=== PATIENT | female | born 1935 | race Caucasian/White ===

== ENCOUNTER → 2017-11-11 | Outpatient (CLI) | payer MEDICARE, OTHER ==
[~2017-11-11] MED LIST: AMLO5 PO; CEPH500 PO; CIPR500 PO; ESTR2 PO; FURO20 PO; HYDR-86 PO; Klor-Con 1010 MEQ PO; LEVSOD75 PO; Lexapro 2020 MG PO; MULTIVITAMIN MINERAL; Metoprolol Tar100 MG PO; PRIMIDONE 250 MG; ROPI.25 PO; Seroquel25 MG PO; Seroquel50 MG PO; TOLT2 PO; Travatan Z5 ML BOTHEYES; Zoloft50 MG PO
[2017-11-11 15:25] LABS: Source, Urine Clean Catch
[2017-11-11 15:43] LABS: Appearance, Urine Hazy (Clear); Bilirubin, Urine Neg (Neg); Blood, Urine 1+ (Neg); Color, Urine Yellow (P-Yellow); Glucose Qualitative, Urine Neg (Neg); Ketones, Urine Neg (Neg); Leukocyte Esterase, Urine 3+ (Neg); Nitrite, Urine Pos (Neg); Protein, Urine Neg (Neg); Urobilinogen, Urine NORM (Normal); pH, Urine 6.5 (5.0-8.0)
[2017-11-11 15:58] LABS: Bacteria Many /hpf; Squamous Epithelial Cells Few /hpf (Few)
== END ==
LOC: LAB 15:23
PROVIDERS: Nurse Practitioner Primary Care
DX: N39.0 Urinary tract infection, site not specified (principal)
CPT/HCPCS: 81001

== ENCOUNTER → 2017-11-20 | Outpatient (CLI) | payer MEDICARE, OTHER ==
[2017-11-20 14:44] LABS: Source, Urine Clean Catch
[2017-11-20 14:53] LABS: Bilirubin, Urine Neg (Neg); Blood, Urine Neg (Neg); Color, Urine Yellow (P-Yellow); Glucose Qualitative, Urine Neg (Neg); Ketones, Urine Neg (Neg); Leukocyte Esterase, Urine Neg (Neg); Nitrite, Urine Neg (Neg); Protein, Urine Neg (Neg); Specific Gravity, Urine 1.015 (1.003-1.022); Urobilinogen, Urine NORM (Normal)
[2017-11-20 15:03] LABS: Appearance, Urine Clear (Clear)
== END | disposition home or self-care (01) ==
LOC: LAB 11:40
PROVIDERS: Nurse Practitioner Primary Care
DX: N39.0 Urinary tract infection, site not specified (principal)
CPT/HCPCS: 81003

== ENCOUNTER → 2018-01-07 | Outpatient (CLI) | payer MEDICARE, OTHER ==
[2018-01-07 19:13] LABS: Source, Urine Clean Catch
[2018-01-07 19:22] LABS: Bilirubin, Urine Neg (Neg); Blood, Urine 1+ (Neg); Glucose Qualitative, Urine Neg (Neg); Ketones, Urine Neg (Neg); Leukocyte Esterase, Urine 2+ (Neg); Nitrite, Urine Pos (Neg); Protein, Urine Neg (Neg); Specific Gravity, Urine 1.015 (1.003-1.022); Urobilinogen, Urine NORM (Normal)
[2018-01-07 19:28] LABS: Appearance, Urine Clear (Clear); Color, Urine Pale Yellow (P-Yellow)
[2018-01-07 19:29] LABS: Bacteria Not Seen /hpf; Red Blood Cells, Urine Not Seen /hpf (0-2); Squamous Epithelial Cells Not Seen /hpf (Few); White Blood Cells, Urine Not Seen /hpf (0-5)
== END | disposition home or self-care (01) ==
LOC: LAB SHORT 15:03 → LAB 15:03
PROVIDERS: Nurse Practitioner Primary Care
DX: N39.0 Urinary tract infection, site not specified (principal)
CPT/HCPCS: 81001; 87077; 87086; 87186

== ENCOUNTER → 2018-02-20 | Outpatient (CLI) | payer MEDICARE, OTHER ==
[2018-02-20 14:01] LABS: Source, Urine Clean Catch
[2018-02-20 14:36] LABS: Bilirubin, Urine Neg (Neg); Blood, Urine 2+ (Neg); Glucose Qualitative, Urine Neg (Neg); Ketones, Urine Neg (Neg); Leukocyte Esterase, Urine 3+ (Neg); Nitrite, Urine Neg (Neg); Protein, Urine 1+ (Neg); Specific Gravity, Urine 1.015 (1.003-1.022); Urobilinogen, Urine NORM (Normal)
[2018-02-20 15:47] LABS: Appearance, Urine Hazy (Clear); Color, Urine Yellow (P-Yellow)
[2018-02-20 15:48] LABS: Bacteria Few /hpf; Squamous Epithelial Cells Few /hpf (Few); White Blood Cells, Urine TNTC /hpf (0-5)
== END ==
LOC: LAB SHORT 03:30 → LAB 03:30
PROVIDERS: Nurse Practitioner Primary Care
DX: N39.0 Urinary tract infection, site not specified (principal)
CPT/HCPCS: 81001; 87077; 87086; 87186

== ENCOUNTER → 2018-03-24 | Outpatient (CLI) | payer MEDICARE, OTHER ==
[2018-03-24 11:30] LABS: Source, Urine Clean Catch
[2018-03-24 11:42] LABS: Bilirubin, Urine Neg (Neg); Blood, Urine 2+ (Neg); Glucose Qualitative, Urine Neg (Neg); Ketones, Urine Neg (Neg); Leukocyte Esterase, Urine 3+ (Neg); Nitrite, Urine Pos (Neg); Protein, Urine Neg (Neg); Urobilinogen, Urine NORM (Normal)
[2018-03-24 12:03] LABS: Appearance, Urine Cloudy (Clear); Color, Urine Pale Yellow (P-Yellow); White Blood Cells, Urine TNTC /hpf (0-5)
[2018-03-24 12:04] LABS: Bacteria Many /hpf; Squamous Epithelial Cells Few /hpf (Few)
== END | disposition home or self-care (01) ==
LOC: LAB 05:45 → LAB SHORT 05:45
PROVIDERS: Nurse Practitioner Primary Care
DX: N39.0 Urinary tract infection, site not specified (principal)
CPT/HCPCS: 81001; 87077; 87086; 87186

== ENCOUNTER → 2018-04-16 | Outpatient (CLI) | payer MEDICARE, OTHER ==
[2018-04-16 19:23] LABS: Source, Urine Clean Catch
[2018-04-16 19:30] LABS: Bilirubin, Urine Neg (Neg); Blood, Urine 2+ (Neg); Glucose Qualitative, Urine Neg (Neg); Ketones, Urine Neg (Neg); Leukocyte Esterase, Urine Neg (Neg); Nitrite, Urine Neg (Neg); Protein, Urine 1+ (Neg); Urobilinogen, Urine NORM (Normal)
[2018-04-16 19:50] LABS: Color, Urine Yellow (P-Yellow)
[2018-04-16 19:51] LABS: Appearance, Urine Clear (Clear)
[2018-04-16 19:53] LABS: Bacteria Few /hpf; Red Blood Cells, Urine Not Seen /hpf (0-2); Squamous Epithelial Cells Few /hpf (Few); White Blood Cells, Urine 0-2 /hpf (0-5)
== END | disposition home or self-care (01) ==
LOC: LAB SHORT 17:00 → LAB 17:00
PROVIDERS: Nurse Practitioner Primary Care
DX: N39.0 Urinary tract infection, site not specified (principal)
CPT/HCPCS: 81001

== ENCOUNTER → 2018-10-15 | Outpatient (CLI) | payer MEDICARE, OTHER ==
[~2018-10-15] MED LIST changes: +Detrol1 MG; +Ranitidine15 MG/1 ML
[2018-10-15 20:07] LABS: Appearance, Urine Clear (Clear); Bilirubin, Urine Neg (Neg); Blood, Urine 2+ (Neg); Color, Urine Yellow (P-Yellow); Glucose Qualitative, Urine Neg (Neg); Ketones, Urine Neg (Neg); Leukocyte Esterase, Urine Neg (Neg); Nitrite, Urine Pos (Neg); Protein, Urine Neg (Neg); Specific Gravity, Urine 1.015 (1.003-1.022); Urobilinogen, Urine NORM (Normal); pH, Urine 6.5 (5.0-8.0)
[2018-10-15 20:26] LABS: Bacteria Mod /hpf; Red Blood Cells, Urine 0-2 /hpf (0-2); Squamous Epithelial Cells Rare /hpf (Few); White Blood Cells, Urine 0-2 /hpf (0-5)
== END ==
LOC: LAB SHORT 19:37 → LAB 19:37
PROVIDERS: Nurse Practitioner Primary Care
DX: Z51.81 Encounter for therapeutic drug level monitoring (principal); Z79.899 Other long term (current) drug therapy
CPT/HCPCS: 81001; 87077; 87086; 87186

== ENCOUNTER 2018-10-29 03:36 | Emergency (ER) | payer MEDICARE, OTHER ==
[~2018-10-29] VITALS: Ht 167.6 cm; Wt 81.7 kg
[~2018-10-29 03:36] MED LIST changes: -Detrol1 MG; -Ranitidine15 MG/1 ML
== END 2018-10-29 06:00 | disposition home or self-care (01) ==
LOC: ER 03:36
DX: M25.551 Pain in right hip (principal); F32.9 Major depressive disorder, single episode, unspecified; I10 Essential (primary) hypertension; M19.90 Unspecified osteoarthritis, unspecified site; G30.9 Alzheimer's disease, unspecified; F02.80 Dementia in other diseases classified elsewhere, unspecified severity, without behavioral disturbance, psychotic disturbance, mood disturbance, and anxiety; Z88.0 Allergy status to penicillin; Z88.8 Allergy status to other drugs, medicaments and biological substances; Z79.899 Other long term (current) drug therapy; W19.XXXA Unspecified fall, initial encounter; Y92.129 Unspecified place in nursing home as the place of occurrence of the external cause
CPT/HCPCS: 73502; 99283-25

== ENCOUNTER 2018-11-01 09:37 | Emergency (ER) | payer MEDICARE, OTHER ==
[~2018-11-01] VITALS: Ht 165.1 cm; Wt 95.2 kg
[2018-11-01] MEDS ORDERED: Ranitidine15 MG/1 ML (10:26)
[2018-11-01] MEDS ORDERED: Detrol1 MG (10:27)
== END 2018-11-01 13:00 | disposition home or self-care (01) ==
LOC: ER 09:37
DX: M25.561 Pain in right knee (principal); F03.90 Unspecified dementia, unspecified severity, without behavioral disturbance, psychotic disturbance, mood disturbance, and anxiety; W18.30XA Fall on same level, unspecified, initial encounter; Z88.0 Allergy status to penicillin; Z88.8 Allergy status to other drugs, medicaments and biological substances; Z79.899 Other long term (current) drug therapy; I10 Essential (primary) hypertension
CPT/HCPCS: 72170; 73562-LT; 73562-RT; 99283-25

== ENCOUNTER → 2018-11-11 | Outpatient (CLI) | payer MEDICARE, OTHER ==
[~2018-11-11] MED LIST changes: +Detrol1 MG; +Ranitidine15 MG/1 ML
[2018-11-17 09:21] LABS: Source, Urine Clean Catch
[2018-11-17 09:27] LABS: Appearance, Urine Clear (Clear); Bilirubin, Urine Neg (Neg); Blood, Urine Neg (Neg); Color, Urine Yellow (P-Yellow); Glucose Qualitative, Urine Neg (Neg); Ketones, Urine Neg (Neg); Leukocyte Esterase, Urine Neg (Neg); Nitrite, Urine Neg (Neg); Protein, Urine Neg (Neg); Specific Gravity, Urine 1.005 (1.003-1.022); Urobilinogen, Urine NORM (Normal)
== END | disposition home or self-care (01) ==
LOC: LAB SHORT 09:19 → LAB 09:19
PROVIDERS: Nurse Practitioner Family
DX: N39.0 Urinary tract infection, site not specified (principal)
CPT/HCPCS: 81003

== ENCOUNTER 2019-03-05 17:01 | Inpatient (IN) | payer MEDICARE, OTHER ==
[~2019-03-05] VITALS: Ht 167.6 cm; Wt 81.7 kg
[~2019-03-05 17:01] MED LIST changes: -Detrol1 MG; -HYDR-86 PO; -LEVSOD75 PO; -Lexapro 2020 MG PO; -Metoprolol Tar100 MG PO; -Ranitidine15 MG/1 ML; -Seroquel50 MG PO; -TOLT2 PO
[2019-03-05] MEDS ORDERED: DIVA125 PO (21:39)
[2019-03-05] MEDS ORDERED: ACET325 PO ×2 (21:39→21:47)
[2019-03-05] MEDS ORDERED: ESCI10 PO (21:40)
[2019-03-05] MEDS ORDERED: LEVSOD75 PO (21:40)
[2019-03-05] MEDS ORDERED: Metoprolol Tar100 MG PO (21:41)
[2019-03-05] MEDS ORDERED: PRESERVISION A1 EACH PO (21:42)
[2019-03-05] MEDS ORDERED: Seroquel50 MG PO (21:42)
[2019-03-05] MEDS ORDERED: Zantac150 MG PO (21:43)
[2019-03-05] MEDS ORDERED: Detrol1 MG PO (21:43)
[2019-03-05] MEDS ORDERED: THERA1 EACH PO (21:44)
[2019-03-05] MEDS ORDERED: Hydrocodone-Ap1 EA23 PO (21:45)
[2019-03-05] MEDS ORDERED: QUET25 PO (21:46)
[2019-03-05] MEDS ORDERED: PROC25S PR (21:48)
[2019-03-05] MEDS ORDERED: NYSTRITC TOP (21:48)
[2019-03-05 22:47] LABS: BASOPHILS ABSOLUTE AUTO 0.04 K/mm3 (0.00-0.23); BASOPHILS PERCENT AUTO 1 % (0-2); EOSINOPHILS ABSOLUTE AUTO 0.13 K/mm3 (0.00-0.68); EOSINOPHILS PERCENT AUTO 2 % (0-6); Hematocrit 33.9 % (33.0-51.0); Hemoglobin 11.1 g/dL (11.5-16.0); IMMATURE GRAN ABSOLUTE AUTO 0.03 K/mm3 (0.00-0.10); IMMATURE GRAN PERCENT AUTO 0 % (0-1); LYMPHOCYTES ABSOLUTE AUTO 1.31 K/mm3 (0.84-5.20); LYMPHOCYTES PERCENT AUTO 15 % (21-46); MONOCYTES ABSOLUTE AUTO 1.16 K/mm3 (0.16-1.47); MONOCYTES PERCENT AUTO 13 % (4-13); Mean Corpuscular HGB 31.4 pg (26.0-34.0); Mean Corpuscular HGB Conc 32.7 g/dL (31.5-36.5); Mean Corpuscular Volume 96 fL (80-100); NEUTROPHILS ABSOLUTE AUTO 6.15 K/mm3 (1.96-9.15); NEUTROPHILS PERCENT AUTO 70 % (41-73); Platelet Count 143 K/mm3 (150-400); RDW Coefficient Variation 13.3 % (11.7-14.2); RDW Standard Deviation 47.2 fL (35.1-46.3); Red Blood Cell Count 3.53 M/mm3 (3.80-5.20); White Blood Cell Count 8.82 K/mm3 (4.00-11.30)
[2019-03-05 23:06] LABS: International Normalized Ratio 1.04
[2019-03-05 23:09] LABS: Anion Gap 6 mmol/L (6-16); Blood Urea Nitrogen 21 mg/dL (8-24); Bun/Creatinine Ratio 24.7 (12.0-20.0); CO2, Blood 29 mmol/L (21-32); Calcium, Blood 8.4 mg/dL (8.5-10.1); Chloride, Blood 107 mmol/L (98-108); Creatinine, Blood 0.85 mg/dL (0.40-1.00); Glomerular Filtration Rate >60 (60-); Glucose, Blood 111 mg/dL (70-99); Potassium, Blood 4.2 mmol/L (3.5-5.5); Sodium, Blood 142 mmol/L (136-145)
--- NOTE | 2019-03-06 06:00 | NUR ---
SHIFT SUMMARY LYING IN SEMI FOWLERFS WITH EYES CLOSED. RESTED WELL, PAIN MANAGED. CONFUSED AT BASELINE. DENIES FURTHER NEEDS OR WANTS AT THIS TIME. SAFETY MEASURES IN PLACE. WILL GIVE HAND OFF TO ONCOMING SHIFT USING SBAR.
--- NOTE | 2019-03-06 12:48 | NUR ---
PT TO DAY SURGERY AT THIS TIME.
--- NOTE | 2019-03-06 13:50 | NUR ---
PER DR ZAIDI, PAUL FOR L FOOT IV SITE.
--- NOTE | 2019-03-06 18:28 | NUR ---
PT ARRIVED BACK TO HER ROOM AT APPROXIMATELY 1814. SHE IS ALERT BUT IN HER USUAL STATE OF CONFUSION. VSS. PT DOES NOT APPEAR TO BE IN PAIN. WILL CONTINUE TO MONITOR.
--- NOTE | 2019-03-06 19:32 | NUR ---
SHIFT SUMMARY PT WAS TAKEN TO SURGERY TODAY BY DR. PATIÑO. SHE RETURNED TO THE ROOM AT 181. POST OP PT IS ALERT AND IN HER USUAL STATE OF CONFUSION. PT'S WAS AT THE BEDSIDE FOR MUCH OF THE DAY. VSS. REPORT GIVEN TO BONI GOMES.
[2019-03-07 04:28] LABS: BASOPHILS ABSOLUTE AUTO 0.01 K/mm3 (0.00-0.23); BASOPHILS PERCENT AUTO 0 % (0-2); EOSINOPHILS PERCENT AUTO 0 % (0-6); Hematocrit 30.3 % (33.0-51.0); Hemoglobin 9.8 g/dL (11.5-16.0); IMMATURE GRAN ABSOLUTE AUTO 0.06 K/mm3 (0.00-0.10); IMMATURE GRAN PERCENT AUTO 0 % (0-1); LYMPHOCYTES ABSOLUTE AUTO 0.93 K/mm3 (0.84-5.20); LYMPHOCYTES PERCENT AUTO 7 % (21-46); MONOCYTES ABSOLUTE AUTO 1.54 K/mm3 (0.16-1.47); MONOCYTES PERCENT AUTO 11 % (4-13); Mean Corpuscular HGB 30.9 pg (26.0-34.0); Mean Corpuscular HGB Conc 32.3 g/dL (31.5-36.5); Mean Corpuscular Volume 96 fL (80-100); Mean Platelet Volume 10.9 fL (9.1-12.4); NEUTROPHILS ABSOLUTE AUTO 11.07 K/mm3 (1.96-9.15); NEUTROPHILS PERCENT AUTO 81 % (41-73); Platelet Count 174 K/mm3 (150-400); RDW Coefficient Variation 13.3 % (11.7-14.2); RDW Standard Deviation 47.3 fL (35.1-46.3); Red Blood Cell Count 3.17 M/mm3 (3.80-5.20); White Blood Cell Count 13.61 K/mm3 (4.00-11.30)
--- NOTE | 2019-03-07 05:55 | NUR ---
SHIFT SUMMARY: PT POD #1 FOR RIGHT MARKELL HIP. PT ORIENTED TO SELF. PLEASANT AND COOPERATIVE WITH CARE. MUMBLING TO SELF. OCC PICKING AT BLANKETS. AQUACEL DRESSING INTACT W/O DRAINAGE. FLUIDS INFUSING. PT INCONTINENT T/O SHIFT. ABDUCTOR IN PLACE. SCDS ON BILATERAL CALFS. ISABELA HOSE PLACED TO RIGHT LEG ONLY D/T THE IV IN THE LEFT FOOT. PT APPEARS TO BE COMFORTABLE THROUGHOUT SHIFT; DENYING PAIN. NO GRIMACE NOTED. PT NON AMBULATORY AT BASELINE. WILL WORK WITH PT.
--- NOTE | 2019-03-07 11:39 | NUR ---
DR LINN RECENTLY HERE TO SEE PT.
--- NOTE | 2019-03-07 12:42 | NUR ---
DR PATIÑO HERE RECENTLY TO SEE PT.
--- NOTE | 2019-03-07 16:51 | NUR ---
SHIFT SUMMARY PT EATING AND DRINKING WITH ASSIST AND ENCOURAGEMENT. PT BEEN ASSISTED WITH ADL'S PRN. PT BEEN REPOSITIONED MULT TIMES TODAY. PT ADBUCTOR PILLOW IN PLACE. FAMILY IN/OUT OF ROOM. ALARM IN PLACE. PT MED ORDERED AND FOR PAIN WITHOUT DIFFICULTY WITH ASPIRATION PRECAUTIONS IN PLACE. HELDER RIDER BEEN TO SEE PT TODAY.
[2019-03-08 04:34] LABS: BASOPHILS ABSOLUTE AUTO 0.04 K/mm3 (0.00-0.23); BASOPHILS PERCENT AUTO 0 % (0-2); EOSINOPHILS ABSOLUTE AUTO 0.35 K/mm3 (0.00-0.68); EOSINOPHILS PERCENT AUTO 3 % (0-6); Hematocrit 27.5 % (33.0-51.0); Hemoglobin 8.8 g/dL (11.5-16.0); IMMATURE GRAN ABSOLUTE AUTO 0.12 K/mm3 (0.00-0.10); IMMATURE GRAN PERCENT AUTO 1 % (0-1); LYMPHOCYTES ABSOLUTE AUTO 2.17 K/mm3 (0.84-5.20); LYMPHOCYTES PERCENT AUTO 15 % (21-46); MONOCYTES ABSOLUTE AUTO 1.82 K/mm3 (0.16-1.47); MONOCYTES PERCENT AUTO 13 % (4-13); Mean Corpuscular HGB 31.4 pg (26.0-34.0); Mean Corpuscular Volume 98 fL (80-100); Mean Platelet Volume 11.1 fL (9.1-12.4); NEUTROPHILS ABSOLUTE AUTO 9.58 K/mm3 (1.96-9.15); NEUTROPHILS PERCENT AUTO 68 % (41-73); Platelet Count 162 K/mm3 (150-400); RDW Coefficient Variation 13.9 % (11.7-14.2); RDW Standard Deviation 50.4 fL (35.1-46.3); White Blood Cell Count 14.08 K/mm3 (4.00-11.30)
[2019-03-08 04:53] LABS: Albumin, Blood 2.2 g/dL (3.4-5.0); Anion Gap 3 mmol/L (6-16); Blood Urea Nitrogen 36 mg/dL (8-24); Bun/Creatinine Ratio 31.3 (12.0-20.0); CO2, Blood 27 mmol/L (21-32); Calcium, Blood 7.8 mg/dL (8.5-10.1); Chloride, Blood 109 mmol/L (98-108); Creatinine, Blood 1.15 mg/dL (0.40-1.00); Glomerular Filtration Rate 48 (60-); Glucose, Blood 115 mg/dL (70-99); Phosphorus, Blood 3.5 mg/dL (2.5-4.9); Potassium, Blood 4.4 mmol/L (3.5-5.5); Sodium, Blood 139 mmol/L (136-145)
--- NOTE | 2019-03-08 04:56 | NUR ---
SHIFT SUMMARY: NO ACUTE CHANGES OVER NIGHT. ORIENTED TO SELF. RESPONDING WITH MINIMAL WORDS. VOIDING IN ATTENDS. CRYSTAL MEDS CRUSHED IN APPLESAUCE. GIVEN NORCO AND TYLENOL FOR PAIN. PT APPEARS TO BE IN PAIN DURING REPOSITIONING, OTHERWISE APPEARS TO BE COMFORTABLE. SLEEPING MOST OF SHIFT. SALINE LOCKED. AQUACEL DRESSING CDI.
--- NOTE | 2019-03-08 16:33 | NUR ---
SHIFT SUMMARY PT BEEN ENC TO INCREASE PO INTAKE. PT BEEN ASSISTED WITH ADL'S PRN AND REPOSITIONED MULT TIMES. PT FAMILY IN/OUT OF ROOM. BED ALARM IN PLACE. PT BEEN PLEASANT AND COOPERATIVE WITH CARE.
[2019-03-09 04:18] LABS: BASOPHILS ABSOLUTE AUTO 0.03 K/mm3 (0.00-0.23); BASOPHILS PERCENT AUTO 0 % (0-2); EOSINOPHILS ABSOLUTE AUTO 0.48 K/mm3 (0.00-0.68); EOSINOPHILS PERCENT AUTO 4 % (0-6); Hematocrit 27.5 % (33.0-51.0); Hemoglobin 8.7 g/dL (11.5-16.0); IMMATURE GRAN PERCENT AUTO 1 % (0-1); LYMPHOCYTES ABSOLUTE AUTO 1.67 K/mm3 (0.84-5.20); LYMPHOCYTES PERCENT AUTO 15 % (21-46); MONOCYTES ABSOLUTE AUTO 1.32 K/mm3 (0.16-1.47); MONOCYTES PERCENT AUTO 12 % (4-13); Mean Corpuscular HGB 31.4 pg (26.0-34.0); Mean Corpuscular HGB Conc 31.6 g/dL (31.5-36.5); Mean Corpuscular Volume 99 fL (80-100); Mean Platelet Volume 11.4 fL (9.1-12.4); NEUTROPHILS ABSOLUTE AUTO 7.85 K/mm3 (1.96-9.15); NEUTROPHILS PERCENT AUTO 69 % (41-73); Platelet Count 178 K/mm3 (150-400); RDW Coefficient Variation 13.8 % (11.7-14.2); RDW Standard Deviation 50.9 fL (35.1-46.3); Red Blood Cell Count 2.77 M/mm3 (3.80-5.20); White Blood Cell Count 11.45 K/mm3 (4.00-11.30)
[2019-03-09 04:33] LABS: Anion Gap 5 mmol/L (6-16); Blood Urea Nitrogen 26 mg/dL (8-24); Bun/Creatinine Ratio 29.6 (12.0-20.0); CO2, Blood 26 mmol/L (21-32); Calcium, Blood 8.1 mg/dL (8.5-10.1); Chloride, Blood 110 mmol/L (98-108); Creatinine, Blood 0.88 mg/dL (0.40-1.00); Glomerular Filtration Rate >60 (60-); Glucose, Blood 103 mg/dL (70-99); Potassium, Blood 4.2 mmol/L (3.5-5.5); Sodium, Blood 141 mmol/L (136-145)
--- NOTE | 2019-03-09 04:57 | NUR ---
SUMMARY: PT IS POD 3 R FEMORAL NECK FX REPAIR. NO CHANGE TONIGHT. VSS. PT HAS BEEN NON VERBAL TONIGHT, ALERT, BUT NOT ANSWERING QUESTIONS. HX OF SEVERE DEMENTIA. PT TURNED Q2, ATTENDS CHANGED PRN, IS VOIDING. PT DOES NOT USE CALL LIGHT, FREQUENT ROUNDING COMPLETED. SURGICAL SITE WNL, ABDUCTOR PILLOW USED WHEN PT LYING FLAT. PT GIVEN TYLENOL X2, IS PAINFUL WITH REPOSITIONING. NO ACUTE CONCERNS AT THIS TIME.
--- NOTE | 2019-03-09 08:08 | NUR ---
03/09/19 0808 Daylin Bernal VERIFICATIONS: EDIT CHART.
[2019-03-09] MEDS ORDERED: XARELTO15 MG PO (11:45)
[2019-03-09] MEDS ORDERED: Senna Plus Tab1 EACH PO (11:45)
--- NOTE | 2019-03-09 18:15 | NUR ---
DISCHARGE REPORT CALLED TO BRUCE AT [facility] AT APPROXIMATELY 1630. PT LEFT AT APPROXIMATELY 1710 IN WHEELCHAIR WITH [employer]. VSS. DRESSINGS PROVIDED AND DISCHARGE INSTRUCTIONS SENT WITH PATIENT.
== END 2019-03-09 17:00 | DRG 470 ==
LOC: ER 17:01 → SURS 21:59
PROVIDERS: Internal Medicine; Nurse Practitioner Acute Care; Orthopaedic Surgery; ADMIT Internal Medicine
PROC: 0SR90J9 Replacement of Right Hip Joint with Synthetic Substitute, Cemented, Open Approach (ICD-10-PCS; principal; 2019-03-06 13:30)
DX: S72.001A Fracture of unspecified part of neck of right femur, initial encounter for closed fracture (principal); D62 Acute posthemorrhagic anemia; W19.XXXA Unspecified fall, initial encounter; G30.9 Alzheimer's disease, unspecified; F02.80 Dementia in other diseases classified elsewhere, unspecified severity, without behavioral disturbance, psychotic disturbance, mood disturbance, and anxiety; I10 Essential (primary) hypertension; E03.9 Hypothyroidism, unspecified; F41.8 Other specified anxiety disorders
CPT/HCPCS: 36415; 72100; 72170; 73502; 73562-RT; 73590; 80048; 80069; 84443; 85025; 85610; 88305; 88311; 93971; 97110; 97162; 97530; 99285-25; A9270; A9270-GY; C1713; C1776; J0171; J0735; J1100; J1650; J1885; J2370; J2405; J2704; J2710; J2795; J3010; J7030; J7120

== ENCOUNTER 2019-03-26 17:19 | Inpatient (IN) | payer MEDICARE, OTHER ==
[~2019-03-26] VITALS: Ht 157.5 cm; Wt 90.7 kg
[~2019-03-26 17:19] MED LIST changes: +ACET325 PO; +DIVA125 PO; +Detrol1 MG PO; +ESCI10 PO; +Hydrocodone-Ap1 EA23 PO; +LEVSOD75 PO; +Metoprolol Tar100 MG PO; +NYSTRITC TOP; +PRESERVISION A1 EACH PO; +PROC25S PR; +QUET25 PO; +Senna Plus Tab1 EACH PO; +Seroquel50 MG PO; +THERA1 EACH PO; +XARELTO15 MG PO; +Zantac150 MG PO
[2019-03-26 19:00] LABS: BASOPHILS ABSOLUTE AUTO 0.04 K/mm3 (0.00-0.23); BASOPHILS PERCENT AUTO 0 % (0-2); EOSINOPHILS ABSOLUTE AUTO 0.09 K/mm3 (0.00-0.68); EOSINOPHILS PERCENT AUTO 1 % (0-6); Hematocrit 34.6 % (33.0-51.0); IMMATURE GRAN ABSOLUTE AUTO 0.05 K/mm3 (0.00-0.10); IMMATURE GRAN PERCENT AUTO 0 % (0-1); LYMPHOCYTES ABSOLUTE AUTO 1.77 K/mm3 (0.84-5.20); LYMPHOCYTES PERCENT AUTO 15 % (21-46); MONOCYTES ABSOLUTE AUTO 1.07 K/mm3 (0.16-1.47); MONOCYTES PERCENT AUTO 9 % (4-13); Mean Corpuscular HGB 31.1 pg (26.0-34.0); Mean Corpuscular HGB Conc 31.8 g/dL (31.5-36.5); Mean Corpuscular Volume 98 fL (80-100); Mean Platelet Volume 11.3 fL (9.1-12.4); NEUTROPHILS ABSOLUTE AUTO 8.91 K/mm3 (1.96-9.15); NEUTROPHILS PERCENT AUTO 75 % (41-73); Platelet Count 221 K/mm3 (150-400); RDW Coefficient Variation 14.6 % (11.7-14.2); Red Blood Cell Count 3.54 M/mm3 (3.80-5.20); White Blood Cell Count 11.93 K/mm3 (4.00-11.30)
[2019-03-26 19:22] LABS: Alanine Aminotransfer (ALT/SGP 13 U/L (12-78); Albumin, Blood 2.8 g/dL (3.4-5.0); Albumin/Globulin Ratio 0.8 (0.8-1.8); Alk Phos 59 U/L (50-136); Anion Gap 6 mmol/L (6-16); Aspartate Aminotrans (AST/SGOT 11 U/L (12-37); Bilirubin, Total 0.9 mg/dL (0.1-1.0); Blood Urea Nitrogen 15 mg/dL (8-24); Bun/Creatinine Ratio 18.3 (12.0-20.0); CO2, Blood 28 mmol/L (21-32); Calcium, Blood 8.4 mg/dL (8.5-10.1); Chloride, Blood 107 mmol/L (98-108); Creatinine, Blood 0.82 mg/dL (0.40-1.00); Globulin, Blood 3.6 g/dL (2.2-4.0); Glomerular Filtration Rate >60 (60-); Glucose, Blood 107 mg/dL (70-99); Magnesium, Blood 2.2 mg/dL (1.6-2.4); Potassium, Blood 3.6 mmol/L (3.5-5.5); Sodium, Blood 141 mmol/L (136-145); Total Protein, Blood 6.4 g/dL (6.4-8.2)
[2019-03-27] MEDS ORDERED: TRAM50 PO (02:16)
[2019-03-27 05:12] LABS: Hematocrit 34.5 % (33.0-51.0); Mean Corpuscular HGB 30.6 pg (26.0-34.0); Mean Corpuscular HGB Conc 31.9 g/dL (31.5-36.5); Mean Corpuscular Volume 96 fL (80-100); Mean Platelet Volume 11.3 fL (9.1-12.4); Platelet Count 211 K/mm3 (150-400); RDW Coefficient Variation 14.6 % (11.7-14.2); RDW Standard Deviation 50.6 fL (35.1-46.3); White Blood Cell Count 10.23 K/mm3 (4.00-11.30)
--- NOTE | 2019-03-27 05:20 | NUR ---
RESTRAINT APPLIED PT WITH MULTIPLE ATTEMPTS TO GET OOB. PT PULLED LATEST IV OUT. HOSPITALIST ON PHONE WITH NEW IV ABX ORDERS, INFORMED OF PT'S STATUS. ORDERS TO APPLY VEST OBTAINED. VEST APPLIED AT 0345 WITH NEW IV PLACED AT 0415. IV WRAPPED + COVERED, DISTRACTION VEST GIVEN TO PT WITH LITTLE EFFECT. PT CONTINUED TO PICK AND PULL AT IV DRESSING. HOSPITALIST INFORMED OF CONTINUED BEHAVIOR WITH NEW ORDERS TO APPLY SOFT WRIST RESTRAINTS BILATERALLY. BILATERAL SOFT WRIST RESTRAINTS APPLIED AT 0445. PT NOW QUIET IN BED, WATCHING TV WITH STAFF MEMBER AT BEDSIDE. WILL ADMINISTER MEDICATIONS ASSESSED. BED ALARM ON FOR SAFETY.
[2019-03-27 06:03] LABS: Alanine Aminotransfer (ALT/SGP 11 U/L (12-78); Albumin, Blood 2.9 g/dL (3.4-5.0); Albumin/Globulin Ratio 0.8 (0.8-1.8); Alk Phos 61 U/L (50-136); Anion Gap 7 mmol/L (6-16); Aspartate Aminotrans (AST/SGOT 12 U/L (12-37); Bilirubin, Total 1.2 mg/dL (0.1-1.0); Blood Urea Nitrogen 14 mg/dL (8-24); Bun/Creatinine Ratio 18.7 (12.0-20.0); CO2, Blood 25 mmol/L (21-32); Calcium, Blood 8.7 mg/dL (8.5-10.1); Chloride, Blood 108 mmol/L (98-108); Creatinine, Blood 0.75 mg/dL (0.40-1.00); Globulin, Blood 3.8 g/dL (2.2-4.0); Glomerular Filtration Rate >60 (60-); Glucose, Blood 98 mg/dL (70-99); Potassium, Blood 3.5 mmol/L (3.5-5.5); Sodium, Blood 140 mmol/L (136-145); Total Protein, Blood 6.7 g/dL (6.4-8.2)
--- NOTE | 2019-03-27 06:39 | NUR ---
SHIFT SUMMARY PT NEW ADMIT THIS AM. CONFUSED/PULLING AT LINES/FREQUENT ATTEMPTS TO GET OOB. DNR BAND APPLIED TO LLE. HIP WITH LARGE AMOUNT PURULENT DRAINAGE, DRESSING APPLIED. PT PULLED X3 IVs SINCE ED WITH NEW IV PLACED IN RIGHT AC. VEST PLACED AT 0345 WITH BILATERAL WRIST RESTRAINTS PLACED AT 0445. POST PLACEMENT OF RESTRAINTS, PT CONTINUE TO ATTEMPT TO GET OOB + YELLING OUT AT TIMES. MEDICATED FOR DISCOMFORT WHEN ASSESSED + PT VERBALLY REDIRECTED ONCE STAFF IS IN THE ROOM. THIS NURSE IS CURRENTLY AT BEDSIDE WITH PT RESTING COMFORTABLE. BED ALARM ON FOR SAFETY, BED IN LOW POSITION. WILL REPORT TO DAY SHIFT RN.
[2019-03-27 12:11] LABS: Source, Urine Catheter
[2019-03-27 12:14] LABS: Appearance, Urine Clear (Clear); Bilirubin, Urine Neg (Neg); Blood, Urine 4+ (Neg); Color, Urine Yellow (P-Yellow); Glucose Qualitative, Urine Neg (Neg); Ketones, Urine 2+ (Neg); Leukocyte Esterase, Urine 1+ (Neg); Nitrite, Urine Pos (Neg); Protein, Urine 1+ (Neg); Urobilinogen, Urine NORM (Normal)
[2019-03-27 12:42] LABS: Squamous Epithelial Cells Few /hpf (Few)
[2019-03-27 12:43] LABS: Bacteria Few /hpf
--- NOTE | 2019-03-27 12:56 | NUR ---
PT TO DAY SURGERY AT THIS TIME
--- NOTE | 2019-03-27 13:41 | NUR ---
PT TAKEN BACK TO OR FOR I&D
--- NOTE | 2019-03-27 13:52 | NUR ---
TO SDS VIA BED. PT CONFUSED. PULLING AT LINES. DIFFICULT TO RE-ORIENT. SPOKE WITH MYLA MICHAUD VIA PHONE. CONSENTED TO SURGERY.
--- NOTE | 2019-03-27 14:56 | NUR ---
03/27/19 1456 Keyonna Kong PT ENTERED OR WITH ELIZABETH CATHETER AND ON SCHEDULED ANTIBIOTICS
--- NOTE | 2019-03-27 18:31 | NUR ---
SHIFT SUMMARY PT SEVERE DEMENTIA, PLEASANT, CONSTANTLY SQUIRMING AND TRYING TO GET OUT OF BED, PULLING AT ELIZABETH, STAT LOCK, IV, ID BAND AND DNR BAND; EDY & WRIST RESTRAINTS IN PLACE, EXPIRES 03/28 1715. S/P I&D TO R HIP REPAIR OF 03/06/19, WOUND VAC IN PLACE. CRYSTAL PO, NO N&V. PAIN MANAGED WITH 50 MCG FENT. ELIZABETH PATENT & DRAINING YELLOW URINE, STAT LOCK ON, OFF FLOOR. DNR BAND AND ID BAND ON L ANKLE. SCDS ON. IVF & ABX INFUSING. WCTM & TX PER EMAR UNTIL REPORT GIVEN TO ONCOMING NOC RN.
--- NOTE | 2019-03-28 07:40 | NUR ---
SHIFT SUMMARY PT ALERT T/O SHIFT. ORIENTED TO SELF. RESTRAINTS PER ORDERS. POD#1 I&D R HIP; VAC DRESSING TO R HIP REINFORCED X2 D/T PT PULLING. PAIN IN R HIP MANAGED PER EMAR. NO ACUTE CHANGES. PT FREQUENTLY MOVED BLE'S. BM X1. ELIZABETH DRAINING WELL. CALL LIGHT IN REACH. REPORT GIVEN TO DAY SHIFT RN.
--- NOTE | 2019-03-28 19:51 | NUR ---
SUMMARY: NO ACUTE CHANGE TODAY. VSS, PT ORIENTED TO SELF ONLY AT BASELINE. CONFUSED, PULLS AT LINES, FREQUENT MONITORING. SURGICAL SITE REMAINED INTACT WITH WOUND VAC, NEEDED CHANGED AT SHIFT START DUE TO PT PULLING ON WOUND VAC CORD. RESTRAITS IN USE PER ORDER, ORDERS RENEWED WITH DR. LOMELI. PT DID NOT SEEM PAINFUL TODAY. CSM INTACT AND SMALL AMOUNT OF DRAINAGE FROM WOUND VAC. PREVENTATIVE MEPALIX PLACED TO COCCYX. PLAN IS FOR I&D TOMORROW, PT NPO AT 0000. REPORT GIVEN TO MIREYA GUIDRY
--- NOTE | 2019-03-29 08:43 | NUR ---
SUMMARY PENDING OR TODAY FOR R HIP I/D WASH OUT POTENTIAL TODAY.CONT CONFUSED,AND PULLING AT LINES TONIGHT ALTHOUGH IMPROVING .
--- NOTE | 2019-03-29 13:19 | NUR ---
03/29/19 Juan9 Marielos Mann ALL COUNTS CORRECT, RESTRAINTS REPLACED
--- NOTE | 2019-03-29 13:51 | NUR ---
REPORT RECIEVED FROM JANEY REEDU RN AT 5624
--- NOTE | 2019-03-29 14:59 | NUR ---
POST OP: PT TO UNIT AT ABOUT 1400. UPON ASSESSMENT PT IS ALERT, ORIENTED TO PERSON, OTHERWISE DOES NOT ANSWER QUESTIONS AND HAS CONFUSED LOOK. PT HAS DEMENTIA AT BASELINE. SURGICAL SITE/ WOUND VAC WNL. PT CONTINUES TO BE RESTRAINED, BILATERAL SOFT WRIST RESTRAINTS AND MONSERRAT TO R HAND, PT PULLING AT SURGICAL SITE/LINES/TUBES BEFORE TODAY'S I&D. PT DENIES PAIN AND NAUSEA. LUNG SOUNDS CLEAR. VSS. PT ABLE TO DRINK WATER AND EAT JELLO. WILL CTM.
--- NOTE | 2019-03-29 18:27 | NUR ---
SPOKE WITH PT DAUGHTER JASWANT TO UPDATE HER ON PT STATUS AT ABOUT 1845
--- NOTE | 2019-03-30 08:07 | NUR ---
SUMMARY GLENN ALAS PER MARY NETTLES. P T RESTING IN BED AT PRESENT
--- NOTE | 2019-03-30 08:28 | NUR ---
DR BERNARDO HERE TO SEE PT.
--- NOTE | 2019-03-30 17:35 | NUR ---
FAMILY CALLED FOR UPDATE, DISCUSSED PT'S STATUS AND PAIN MANAGEMENT. DISCUSSED PT'S STATUS INCLUDING PT NOT APPEARING TO BE IN PAIN WITH MILLINER HELPER AND NURSING LAGGING MACHINE OPERATOR.
--- NOTE | 2019-03-30 17:59 | NUR ---
Initial Visit: Palliative Care Consult for Medically Fragile and Readmission. Pt is A&Ox1 and denies pain at this time. Pt is pleasantly confused and appears comfortable at this time. PAINAD score is 0/10 with no non verbal indicators of pain or distress at this time. Spoke with Pt's bedside nurse Suman and he reports concerns regarding discharge plan. Infectious disease doctor is recommending IV antibiotics and is unsure how this will be accomodated with Pt's continued attempt to pull out IV. Suman suggested to speak with charge nurse regarding Pt's family concerns and frustrations. Spoke with charge nurse Laly and she reports family is frustrated that Pt has not had any pain medication today. Laly reports Pt has not showed furrowed brow, grimacing, increased respiratory rate or any other non verbal indicators of pain. Offered to contact family and Laly denies need at this time. Laly reports she will contact family and address concerns. Palliative Care will remain available
--- NOTE | 2019-03-30 21:45 | NUR ---
PT ASSISTED BACK TO BED FROM CHAIR.PT HAD REMOVED HER RRIGHT WEIST RESTRAINT AND WAS SITTING SIDEWAYS IN THE RECLYNER. PT'S 20 G IV WAS FOUND TO BE HANGING FROM HER LEFT WRIST, COBAN & PARTIAL DRSG INATCT AROUND HER WRIST. THE TIP WAS NOT INTACT. THE IV CATHETER WAS UNABLE TO BE FOUND, I COULD NOT PALPATE IT IN THE PT'S WRIST. PT IS C/O OF PAIN AT THE IV SITE. REDNESS, AND BRUISING IS PRESENT AT THE SITE. TOURNAQUET PLACED TO LEFT UPPER ARM, HOSPITALIST NOTIFIED, A 2 VIEW XRAY WAS OBTAINED OF THE LEFT FOREARM. HOSPITALIST NOTIFIED OF THE NEED TO CALL RADIOLOGY. CURRENTLY AWAITING FURTHER ORDERS. PT IS STABLE AT THIS TIME. WILL CONTINUE TO MONITOR.
--- NOTE | 2019-03-31 06:24 | NUR ---
SUMMARY NO ACUTE CHANGES THROUGH THE NIGHT, STILL WAITING FOR FUTURE ORDERS REGARDING POSSIBLE IV CATHETER MIGRARTION FROM HOSPITALIST. PT REMAINS CONFUSED AT BASELINE. CIRC WNL TO LEFT ARM, WRIST RESTRAINTS BILATERAL PER ORDERS. WOUND VAC IN PLACE TO RIGHT HIP, DRSG C/D/I, SUCTION INTACT. PT IS ON ROOM AIR. ATTENDS CHANGED PRN.
--- NOTE | 2019-03-31 07:35 | NUR ---
PT CONT TO BE CONFUSED (BASELINE). PT DENIES PAIN, CP, SHORTNESS OF BREATH. CIRC CHECK WNL. PT HAS PBC TO BLE. PT PLEASANT AND COOPERATIVE. PT DOES NOT APPEAR IN ANY PAIN OR DISTRESS. PT FOLLOWING COMMANDS AT THIS TIME. PT REPOSITIONED WITH MULT BLANKETS AND PILLOWS. HEEL PROTECTORS PLACED TO BILAT HEELS. PT OFF RESTRAINTS AT THIS TIME. PT WOUND VAC PROTECTED WITH BLANKET TUCKED AND PILLOWS FOR COMFORT. PT APPEARS TO BE RESTING QUIETLY. BED ALARM IN PLACE (MEDIUM SETTING). [address] CALL LIGHT IN REACH. DISCUSSED WITH QUALITY CONTROL CHECKER AND HOSPICE LIAISON.
--- NOTE | 2019-03-31 08:31 | NUR ---
floor thouroughly swept, IV catheter found under patients bed. Compared to catheter hub pieces appear to match up with no missing parts.
--- NOTE | 2019-03-31 08:38 | NUR ---
PT RESTING QUIETLY. RESP E/U. BED ALARM IN PLACE.
--- NOTE | 2019-03-31 10:27 | NUR ---
PT CONT TO BE PLEASANT AND COOP. DOES NOT APPEAR IN ANY PAIN AT THIS TIME. PT BEEN USING ACTIVITY VEST AND COLOR BOOK. BED ALARM IN PLACE. PT WATCHING TV.
--- NOTE | 2019-03-31 18:00 | NUR ---
SHIFT SUMMARY PT EATING AND DRINKING. PT VOIDING IN ATTENDS. PT BEEN PLEASANT AND COOPERATIVE TODAY. PT BEEN OUT OF RESTRAINTS SINCE THIS AM AT 07:35. PT BEEN ASSISTED WITH ADL'S PRN. PT BEEN REPOSITIONED MULT TIMES TODAY. PT WOUND VAC CHANGED TO HIP EARLIER TODAY WELL IV STARTED IN PT'S FOOT BY OTHER RN Rosey. PT BED ALARM IN PLACE. PT BEEN USING ACTIVITY SHIRT AND COLOR BOOKS AND CRAYON TODAY. PT ALSO RESTED QUIETLY AND NAPPED FOR SOME TIME TODAY.
--- NOTE | 2019-04-01 07:38 | NUR ---
SUMMARY NO ACUTE CHANGES THROUGH THE NIGHT. WOUND VAC REMAINS INTACT. PT REMAINS FREE FROM RESTRAINTS, CALM AND COOPERATIVE. ACTIVITY VEST, COLORING BOOKS AND BLOCKS PROVIDED FOR DISTRACTION, PT APPEARS TO BE HAPPY WITH THEM. BED ALARM FOR SAFETY. NO PAIN MEDS REQUIRED THROUGH THE NIGHT. PT APPEARS TO BE COMFORTABLE.
--- NOTE | 2019-04-02 14:49 | NUR ---
WOUND VAC DSG CHANGE R HIP WOUND VAC DRESSING CHANGED, WOUND BED APPEARED CLEAN AND RED, SCANT SEROUSANGUINOUS DRAINAGE NOTED, WOUND VAC W/ GOOD SEAL AFTER PLACEMENT, PT TOLERATED PROCEDURE WELL.
--- NOTE | 2019-04-02 18:16 | NUR ---
SUMMARY PT WAS FIDGETY THIS AM AND ATTEMPTING TO PULL ON DRESSING, WHEN ASKED IF IN PAIN, STATES "YES" OXYCODONE GIVEN FOR PAIN, PLEASANT AND COOPERATIVE WITH CARE, WOUND VAC DRESSING CHANGED AND BOWEL CARE STARTED TODAY, TURNS AND REPOSITIONS WELL IN BED W/ ASSIST, NO ACUTE CHANGES THIS SHIFT.
--- NOTE | 2019-04-03 07:15 | NUR ---
SUMMARY PT WITH PENDING TRANSFER TO CARE FACILITY TODAY. DRAIN INTACT AND SX.
--- NOTE | 2019-04-03 11:26 | NUR ---
DISCHARGE PLAN SPOKE WITH MIREYA BARRERA AT [facility]. PER BRUCE IF INSURANCE AAUTH WAS OBTAINED PRIOR TO DISCHARGE, [facility] STAFF HAS THE CAPABILITY TO DOSE IM ANTIBIOTICS AND WOULD MANAGE WOUND VAC IF HOME HEALTH WAS ORDERED. PATIENT WOULD NOT BE ABLE TO RETURN TO [facility] ON IV ANTIBIOTICS. DISCUSSED THIS INFORMATION WITH DENI OLIVARES RNPLASTIC SURGERY MANAGER. BRUCE GOMES AT [facility] PHONE [phone]
--- NOTE | 2019-04-03 16:23 | NUR ---
PAIN PATIENT RESTLESS, WHEN ASKED IF LEG HURTS PATIENT REPLIES YES, MEDICATED WITH OXYCODONE .
--- NOTE | 2019-04-03 17:30 | NUR ---
summary PATIENT CALM AND COOPERATIVE THROUGHOUT SHIFT. PATIENT HAS ACTIVITY APRON IN PLACE ON LAP AND KEEPING HANDS BUSY WITH THIS VEST. WOUND VAC IN PLACE TO RIGHT HIP. PATIENT HAS FED SELF MEALS THIS SHIFT. AWAITING POWERGLIDE PLACEMENT THIS SHIFT WHEN PROCEDURE NURSE AVAILABLE
--- NOTE | 2019-04-03 18:58 | NUR ---
POWERGLIDE TO RIGHT UPPER ARM
--- NOTE | 2019-04-04 06:41 | NUR ---
LYING IN LOW FOWLERS WITH EYES CLOSED. CLEANED OF ONCONTINENT EPISODE PRN THIS SHIFT. TEGADERM REINFORCED TO RIGHT HIP AFTER PT ATTEMPTED TO REMOVE IT. NO FURTHER CHANGES NOTED. DENIES PAIN, OR DISCOMFORT AT THIS TIME. SAFETY MEASURES IN PLACE. WILL GIVE HAND OFF TO ONCOMING SHIFT USING SBAR.
--- NOTE | 2019-04-04 17:31 | NUR ---
SHIFT SUMMARY PT HAS DONE WELL THIS SHIFT. UP TO CHAIR FOR 90% OF SHIFT. QUIET AND CALM, EASILY REDIRECTED FROM PICKING AT POWER GLIDE AND WOUND VAC. WOUND VAC C/D/I, FOAM COMPRESSED, SCANT AMT SS FLUID DRAINING IN CANISTER. SALINE LOCKED. HAS NOT APPEARED TO HAVE ANY PAIN THIS SHIFT. UNABLE TO OBTAIN INSURANCE AUTH OVER THE HOLIDAY WEEKEND SO PLAN IS TO DC TO SNF ON SATURDAY IF ABLE TO OBTAIN AUTH.
--- NOTE | 2019-04-05 04:28 | NUR ---
SHIFT SUMMARY PT ALERT, ORIENTED TO SELF AND ABLE TO FOLLOW SIMPLE DIRECTIONS. RA; NO ACUTE CHANGES. WOUND VAC TO R HIP; SEAL INTACT; SCANT SEROSANG DRAINAGE. PPPX4; ALL EXT PINK. PAIN MANAGED PER EMAR. PT SHIFTS WEIGHT INDEPENDENTLY WHILE IN BED. CALL LIGHT IN REACH. BED ALARM AND TAB ALARM IN PLACE; SIDE RAILS X3. WCTM UNTIL REPORT TO DAY SHIFT RN.
--- NOTE | 2019-04-05 14:26 | NUR ---
SHIFT SUMMARY PT HAS DONE WELL THIS SHIFT. UP TO CHAIR WITH 2 PERSON MAX ASSIST. PLAN IS TO DC TO SNF TOMORROW IF APPROVAL FROM INSURANCE. PT HAS BEEN CALM AND COOPERATIVE, WOUND VAC INTACT, FOAM COMPRESSED.
--- NOTE | 2019-04-06 05:56 | NUR ---
SHIFT SUMMARY PT ALERT AND ORIENTED TO SELF; ABLE TO FOLLOW VERY SIMPLE DIRECTIONS. PAIN IN R HIP MANAGED PER EMAR. DRESSING CDI; WOUND VAC SEAL INTACT WITHOUT NOTED LEAKS; 150ML SEROSANG DRAINAGE IN WOUND VAC SINCE 0600 ON 04/05/19. VSS; NO ACUTE CHANGES. PT TRANSFERED FROM CHAIR TO BED DURING START OF SHIFT. PT REPOSITIONED SELF IN BED T/O NIGHT. ASSISTS WITH TURN WHEN GIVEN FOCUSED PROMTS. SMALL AMOUNT OF STOOL PASSED. SIDE RAILS X3, BED ALARM AND TAB ALARMS FOR SAFETY. PT SLEPT WELL. CALL LIGHT IN PT REACH. WCTM UNTIL REPORT TO DAY SHIFT RN.
--- NOTE | 2019-04-06 13:13 | NUR ---
APPEARS TO BE COMFORTABLE, FEEDING HERSELF LUNCH, WOUND VAC DSG C/D/I, CONT. TO MONITOR.
--- NOTE | 2019-04-06 14:43 | NUR ---
WOUND VAC DRESSING CHANGED, WOUND APPEARS CLEAN AND RED, NO DRAINAGE NOTED, PT TOLERATED PROCEDURE WELL, PT TURNED TO L SIDE AND REPOSITIONED FOR COMFORT.
--- NOTE | 2019-04-06 17:50 | NUR ---
SUMMARY PT EATING DINNER, ABLE TO FEED HERSELF WITH ASSIST AND ENCOURAGEMENT, APPEARS TO BE COMFORTABLE, PLAN FOR PT TO STAY HERE FOR 4 MORE DAYS TO FINISH IV ABX PER LANE RICO RN CARE MANAGER (SEE CARE MANAGEMENT NOTE), WOUND VAC DRESSING CHANGED TODAY, NO ACUTE CHANGES THIS SHIFT.
--- NOTE | 2019-04-07 12:14 | NUR ---
PT SITTING ON RECLINER CHAIR, APPEARS TO BE COMFORTABLE, WOUND VAC DSG C/D/I, PLEASAND AND COOPERATIVE WITH CARE.
--- NOTE | 2019-04-07 16:11 | NUR ---
PT BACK IN BED, TURNED TO L SIDE, SIP OF WATER GIVEN, MEDICATED FOR PAIN, PT NOTED WINCING WHEN MOVED.
--- NOTE | 2019-04-08 04:30 | NUR ---
ENTERED PT'S ROOM WHEN IV ALARMED. UNABLE TO FLUSH IV. FOUND WITH CANULA BUNCHED UP UNDERNEATH THE TEGADERM DRESSING. ANGIOCATH REMOVED WITH TIP INTACT, TOLERATED WELL. DRESSING APPLIED TO SITE, NO BLEEDING NOTED. SAFETY MEASURES IN PLACE. WILL CONTINUE TO MONITOR.
--- NOTE | 2019-04-08 06:47 | NUR ---
SHIFT SUMMARY NO C/O PAIN. HAS BEEN PLEASANTLY CONFUSED BUT COOPERATIVE THIS SHIFT. PIV ACCESS LOST AFTER PT PULLED ON IT. REMOVED WITH CATH TIP INTACT. DENIES FURTHER NEEDS OR WANTS AT THIS TIME. SAFETY MEASURES IN PLACE. WILL GIVE HAND OFF TO ONCOMING SHIFT USING SBAR.
--- NOTE | 2019-04-08 18:46 | NUR ---
SHIFT SUMMARY PT PLEASANT AND COOPERATIVE WITH CARE. USED STAND/SIT LIFT UP TO CHAIR, SAT UP THROUGHOUT SHIFT. ATTENDS ON. CRYSTAL PO, DENIES N&V. DOES NOT APPEAR TO BE IN PAIN. WCTM & TX PER EMAR UNTIL REPORT GIVEN TO ONCOMING NOC RN.
--- NOTE | 2019-04-09 06:33 | NUR ---
SHIFT SUMMARY NO C/O PAIN. HAS BEEN PLEASANTLY CONFUSED BUT COOPERATIVE THIS SHIFT, UNTIL DRESSING CHANGE TO WOUND VAC TO RIGHT HIP. HAS CONTINUED TO BE PLEASANT AND COOPERATIVE SINCE THEN. MEDICATED FOR PAIN X1 THIS SHIFT. DENIES FURTHER NEEDS OR WANTS AT THIS TIME. SAFETY MEASURES IN PLACE. WILL GIVE HAND OFF TO ONCOMING SHIFT USING SBAR.
--- NOTE | 2019-04-09 15:11 | NUR ---
SHIFT SUMMARY PT PLEASANT AND COOPERATIVE WITH CARE. CRYSTAL PO. SIT TO STAND LIFT TO CHAIR T/O SHIFT. PHYSICAL THERAPY WORKED WITH PT. PAIN MANAGED WITH 5 MG OXY PER FLACC SCALE. PLAN: CHILD CARE ASSOCIATE WILL MAKE ARRANGEMENTS FOR TRANSPORT FOR 1500, ROCEPHIN IM AT 1400, WOUND VAC DRESSING CHANGE NEEDS TO BE DONE PRIOR TO DC, NARCOTIC SCRIPT IN CHART, HOME HEALTH WILL BEGIN SEEING PT ON SATURDAY AND PHYSICAL THERAPY WILL RESUME. WCTM & TX PER EMAR UNTIL REPORT GIVEN TO ONCOMING NOC RN.
--- NOTE | 2019-04-10 07:15 | NUR ---
recvd report from previous shift RN Danny, pt sleeping in bed, bed rails up x 3, bed in lowest position, bed alarm on, call light within reach
--- NOTE | 2019-04-10 07:15 | NUR ---
SHIFT SUMMARY PT RESTED WELL THROUGH MOST OF NIGHT. CONFUSED/COOPERATIVE. DISCOMFORT CONTROLLED WITH 5MG PO ROXICODONE CRUSHED IN APPLESAUCE. DRESSING TO RIGHT HIP C/D/I WITH WOUND VAC, FOAM COMPRESSED + NO DRAINAGE NOTED THIS SHIFT. INCONTINENT IN ATTENDS. PT REPOSITIONS SELF WELL IN BED. BED ALARM ON FOR SAFETY. REPORT TO MIREYA AVILA. PT RESTING IN BED AT THIS TIME,
--- NOTE | 2019-04-10 08:00 | NUR ---
bed alarming, pt attempting to get OOB on her own, clothing off. wound vac and dressing intact. Two nursing staff with sit to stand lift with pt up in chair. pt combative and refusing assistance.
--- NOTE | 2019-04-10 09:45 | NUR ---
pt currently pleasant/cooperative, largely nonverbal but will occasionally answer with one work responses, eating breakfast with assistance, willing to take meds crushed in pudding.
--- NOTE | 2019-04-10 13:30 | NUR ---
This RN and helmet binder changed wound vac dressing, measurements taken and documented. Dressing sealed and intact. pt has home wound vac in place, supplies boxed and ready for transport back to snf
--- NOTE | 2019-04-10 14:54 | NUR ---
called report to MIREYA Cota at [facility] in preparation of transfer back via wheelchair van at 1500
--- NOTE | 2019-04-10 16:10 | NUR ---
transport here to transfer pt back to [facility] via [facility]. pt's packet and belongings transferred with pt
== END 2019-04-10 16:16 | disposition home or self-care (01) | DRG 857 ==
LOC: ER 17:19 → SURS 23:28
PROVIDERS: Emergency Medicine; Orthopaedic Surgery; ADMIT Internal Medicine
PROC: 0SB90ZZ Excision of Right Hip Joint, Open Approach (ICD-10-PCS; principal; 2019-03-27 14:15)
PROC: 0JDL0ZZ Extraction of Right Upper Leg Subcutaneous Tissue and Fascia, Open Approach (ICD-10-PCS; 2019-03-29)
DX: T81.41XA Infection following a procedure, superficial incisional surgical site, initial encounter (principal); F02.81 Dementia in other diseases classified elsewhere, unspecified severity, with behavioral disturbance; L02.415 Cutaneous abscess of right lower limb; I10 Essential (primary) hypertension; F32.9 Major depressive disorder, single episode, unspecified; M19.90 Unspecified osteoarthritis, unspecified site; G25.81 Restless legs syndrome; G30.9 Alzheimer's disease, unspecified; Z66 Do not resuscitate; E03.9 Hypothyroidism, unspecified; Z78.1 Physical restraint status; R00.1 Bradycardia, unspecified; S72.001D Fracture of unspecified part of neck of right femur, subsequent encounter for closed fracture with routine healing; B95.4 Other streptococcus as the cause of diseases classified elsewhere; Y92.9 Unspecified place or not applicable
CPT/HCPCS: 36415; 73090; 73700; 80053; 81001; 83605; 83735; 84145; 85025; 85027; 85651; 86140; 87040; 87070; 87075; 87205; 93005; 93010; 96365; 96366; 97162; 97530; 99285-25; J0330; J0692; J0696; J1630; J1650; J2405; J2704; J3010; J3370; J7030; J7040; J7050; J7120

== ENCOUNTER 2019-04-13 15:10 | Emergency (ER) | payer MEDICARE, OTHER ==
[~2019-04-13] VITALS: Ht 167.6 cm; Wt 90.7 kg
[~2019-04-13 15:10] MED LIST changes: +TRAM50 PO
[2019-04-13] MEDS ORDERED: OXYC5 PO (15:31)
[2019-04-13] MEDS ORDERED: ACET325 PO (15:32)
== END 2019-04-13 17:57 | disposition home or self-care (01) ==
LOC: ER 15:10
DX: M25.551 Pain in right hip (principal); W19.XXXA Unspecified fall, initial encounter; Z88.0 Allergy status to penicillin; Z88.8 Allergy status to other drugs, medicaments and biological substances; Z79.899 Other long term (current) drug therapy; F03.90 Unspecified dementia, unspecified severity, without behavioral disturbance, psychotic disturbance, mood disturbance, and anxiety; I10 Essential (primary) hypertension; F32.9 Major depressive disorder, single episode, unspecified; E03.9 Hypothyroidism, unspecified
CPT/HCPCS: 73502; 99283-25

== ENCOUNTER 2019-04-24 13:41 | Emergency (ER) | payer MEDICARE, OTHER ==
[~2019-04-24] VITALS: Ht 170.2 cm; Wt 81.7 kg
[~2019-04-24 13:41] MED LIST changes: +OXYC5 PO
[2019-04-24 16:24] LABS: BASOPHILS ABSOLUTE AUTO 0.02 K/mm3 (0.00-0.23); BASOPHILS PERCENT AUTO 0 % (0-2); EOSINOPHILS ABSOLUTE AUTO 0.08 K/mm3 (0.00-0.68); EOSINOPHILS PERCENT AUTO 1 % (0-6); Hematocrit 39.2 % (33.0-51.0); Hemoglobin 12.5 g/dL (11.5-16.0); IMMATURE GRAN ABSOLUTE AUTO 0.06 K/mm3 (0.00-0.10); IMMATURE GRAN PERCENT AUTO 1 % (0-1); LYMPHOCYTES ABSOLUTE AUTO 1.55 K/mm3 (0.84-5.20); LYMPHOCYTES PERCENT AUTO 24 % (21-46); MONOCYTES ABSOLUTE AUTO 1.19 K/mm3 (0.16-1.47); MONOCYTES PERCENT AUTO 19 % (4-13); Mean Corpuscular HGB 30.3 pg (26.0-34.0); Mean Corpuscular HGB Conc 31.9 g/dL (31.5-36.5); Mean Corpuscular Volume 95 fL (80-100); Mean Platelet Volume 10.9 fL (9.1-12.4); NEUTROPHILS ABSOLUTE AUTO 3.49 K/mm3 (1.96-9.15); NEUTROPHILS PERCENT AUTO 55 % (41-73); Platelet Count 253 K/mm3 (150-400); RDW Coefficient Variation 14.6 % (11.7-14.2); Red Blood Cell Count 4.12 M/mm3 (3.80-5.20); White Blood Cell Count 6.39 K/mm3 (4.00-11.30)
[2019-04-24 16:51] LABS: Alanine Aminotransfer (ALT/SGP 12 U/L (12-78); Albumin, Blood 2.7 g/dL (3.4-5.0); Albumin/Globulin Ratio 0.7 (0.8-1.8); Alk Phos 57 U/L (50-136); Anion Gap 7 mmol/L (6-16); Aspartate Aminotrans (AST/SGOT 12 U/L (12-37); Bilirubin, Total 0.3 mg/dL (0.1-1.0); Blood Urea Nitrogen 25 mg/dL (8-24); Bun/Creatinine Ratio 30.5 (12.0-20.0); CO2, Blood 28 mmol/L (21-32); Calcium, Blood 8.6 mg/dL (8.5-10.1); Chloride, Blood 112 mmol/L (98-108); Creatinine, Blood 0.82 mg/dL (0.40-1.00); Globulin, Blood 3.9 g/dL (2.2-4.0); Glomerular Filtration Rate >60 (60-); Glucose, Blood 137 mg/dL (70-99); Potassium, Blood 3.5 mmol/L (3.5-5.5); Sodium, Blood 147 mmol/L (136-145); Total Protein, Blood 6.6 g/dL (6.4-8.2)
[2019-04-24] MEDS ORDERED: Roxicodone5 MG PO (18:10)
== END 2019-04-24 19:19 | disposition home or self-care (01) ==
LOC: ER 13:41
PROVIDERS: Emergency Medicine
DX: S71.001A Unspecified open wound, right hip, initial encounter (principal); I10 Essential (primary) hypertension; F32.9 Major depressive disorder, single episode, unspecified; Z88.0 Allergy status to penicillin; Z88.8 Allergy status to other drugs, medicaments and biological substances; Z79.899 Other long term (current) drug therapy
CPT/HCPCS: 36415; 73701; 76882; 80053; 85025; 99284-25; A9270-GY; Q9967

== ENCOUNTER 2019-05-06 09:51 | Inpatient (IN) | payer MEDICARE, OTHER ==
[~2019-05-06] VITALS: Ht 170.2 cm; Wt 92.5 kg
[~2019-05-06 09:51] MED LIST changes: +Roxicodone5 MG PO
[2019-05-06 10:50] LABS: Source, Urine Catheter
[2019-05-06 11:04] LABS: Appearance, Urine Cloudy (Clear); Bilirubin, Urine Neg (Neg); Blood, Urine 5+ (Neg); Color, Urine Amber (P-Yellow); Glucose Qualitative, Urine Neg (Neg); Ketones, Urine 4+ (Neg); Leukocyte Esterase, Urine 3+ (Neg); Nitrite, Urine Pos (Neg); Protein, Urine 2+ (Neg); Urobilinogen, Urine 1+ (Normal)
[2019-05-06 11:05] LABS: BASOPHILS ABSOLUTE AUTO 0.05 K/mm3 (0.00-0.23); BASOPHILS PERCENT AUTO 0 % (0-2); EOSINOPHILS ABSOLUTE AUTO 0.01 K/mm3 (0.00-0.68); EOSINOPHILS PERCENT AUTO 0 % (0-6); Hemoglobin 12.4 g/dL (11.5-16.0); IMMATURE GRAN ABSOLUTE AUTO 0.23 K/mm3 (0.00-0.10); IMMATURE GRAN PERCENT AUTO 1 % (0-1); LYMPHOCYTES ABSOLUTE AUTO 0.75 K/mm3 (0.84-5.20); LYMPHOCYTES PERCENT AUTO 5 % (21-46); MONOCYTES ABSOLUTE AUTO 1.14 K/mm3 (0.16-1.47); MONOCYTES PERCENT AUTO 7 % (4-13); Mean Corpuscular HGB 30.1 pg (26.0-34.0); Mean Corpuscular HGB Conc 32.6 g/dL (31.5-36.5); Mean Platelet Volume 12.7 fL (9.1-12.4); NEUTROPHILS ABSOLUTE AUTO 13.75 K/mm3 (1.96-9.15); NEUTROPHILS PERCENT AUTO 86 % (41-73); Platelet Count 148 K/mm3 (150-400); RDW Coefficient Variation 15.3 % (11.7-14.2); Red Blood Cell Count 4.12 M/mm3 (3.80-5.20); White Blood Cell Count 15.93 K/mm3 (4.00-11.30)
[2019-05-06 11:07] LABS: Mean Corpuscular Volume 94 fL (80-100)
[2019-05-06 11:11] LABS: Alanine Aminotransfer (ALT/SGP 13 U/L (12-78); Albumin, Blood 2.6 g/dL (3.4-5.0); Albumin/Globulin Ratio 0.6 (0.8-1.8); Alk Phos 47 U/L (50-136); Anion Gap 8 mmol/L (6-16); Aspartate Aminotrans (AST/SGOT 21 U/L (12-37); Bilirubin, Total 0.5 mg/dL (0.1-1.0); Blood Urea Nitrogen 29 mg/dL (8-24); CO2, Blood 24 mmol/L (21-32); Calcium, Blood 8.4 mg/dL (8.5-10.1); Chloride, Blood 117 mmol/L (98-108); Creatinine, Blood 0.81 mg/dL (0.40-1.00); Globulin, Blood 4.2 g/dL (2.2-4.0); Glomerular Filtration Rate >60 (60-); Glucose, Blood 114 mg/dL (70-99); Potassium, Blood 3.6 mmol/L (3.5-5.5); Sodium, Blood 149 mmol/L (136-145); Total Protein, Blood 6.8 g/dL (6.4-8.2)
[2019-05-06 11:28] LABS: Bacteria Many /hpf; White Blood Cells, Urine TNTC /hpf (0-5)
[2019-05-06 11:29] LABS: Squamous Epithelial Cells Many /hpf (Few); Transitional Epithelial Cells Few /hpf (0-Rare)
[2019-05-06] MEDS ORDERED: Magnesium-Alum360 ML PO (12:52)
[2019-05-06] MEDS ORDERED: TRIPLE ANTIBIO1 EAC1 TOP (12:54)
[2019-05-06 13:18] LABS: Valproic Acid 81.8 ug/mL (50.0-100.0)
[2019-05-06] MEDS ORDERED: BISA10S PR (15:03)
[2019-05-06] MEDS ORDERED: Anti-Diarrheal2 MG PO (15:04)
[2019-05-06] MEDS ORDERED: Milk Of Ma400 MG/5 M PO (15:05)
[2019-05-06] MEDS ORDERED: ONDA4ODT MM (15:05)
--- NOTE | 2019-05-06 16:22 | NUR ---
ER ADMIT- PT ARRIVED TO ROOM 330 VIA GURNEY FROM ED. PT AWAKE BUT NONVERBAL. PT GETS AGITATED WITH ANY MOVEMENT OR CARE DONE. NO APPARENT DISCOMFORT NOTED. LS CLEAR, ON RA. HRR. 1+ BLE EDEMA. WOUND VAC NOTED TO RIGHT HIP, CHANGED TO HOSPITAL VAC. DNR CODE STATUS VERIFIED WITH LIBBY AND DNR WRISTBAND PLACED TO RIGHT WRIST. PT TRANSFERED TO ROOM 346. PT FROM [facility].
--- NOTE | 2019-05-06 16:25 | NUR ---
[facility] CALLED REGARDING PT THEY REPORT THEY RECEIVED A CONCERN OF PT WITH POSSIBLE OVERDOSE, I WAS NOT NOTIFIED THIS IS REPORT NOR SAW DOCUMENTATION OF CONCERNS IN THE ER. PER [facility] THEY WILL ATTEMPT TO CONTACT CHATA.
--- NOTE | 2019-05-06 16:27 | NUR ---
REPORT CALLED TO DR AHUJA, SPOKE WITH DR AHUJA.
--- NOTE | 2019-05-07 04:17 | NUR ---
SHIFT SUMMARY PT CONFUSED, MOSTLY NONVERBAL. PLEASANT THROUGH MUCH OF THE NIGHT BUT GETS VERY AGITATED AND COMBATIVE AT TIMES WITH CARE. DID ATTEMPT TO HIT AND BITE STAFF MULTIPLE TIMES. IV INFILTRATED AND NEW IV STARTED BUT IT TOOK MULTIPLE ATTEMPTS BY MULTIPLE STAFF MEMBERS. WOUND VAC TO R HIP REMAINS IN PLACE. VERY LITTLE SEROSANGUINEOUS OUTPUT. REDNESS OUTLINED. PT INCONTINENT. TURNED AND CHANGED NEEDED. PT TOOK PILLS CRUSHED IN APPLESAUCE. ORAL CARE ATTEMPTED BY PT WOULD NOT ALLOW. BLOOD PRESSURE ELEVATED BUT PT FIGHTS STAFF WHEN ATTEMPTING TO GET VITAL SIGNS SO DIFFICULT TO TELL HOW ACCURATE THEY ARE. OTHERWISE VITAL SIGNS ARE STABLE. WILL CONTINUE TO MONITOR.
[2019-05-07 05:05] LABS: BASOPHILS ABSOLUTE AUTO 0.07 K/mm3 (0.00-0.23); BASOPHILS PERCENT AUTO 1 % (0-2); EOSINOPHILS PERCENT AUTO 0 % (0-6); Hematocrit 33.9 % (33.0-51.0); Hemoglobin 11.1 g/dL (11.5-16.0); IMMATURE GRAN ABSOLUTE AUTO 0.09 K/mm3 (0.00-0.10); IMMATURE GRAN PERCENT AUTO 1 % (0-1); LYMPHOCYTES ABSOLUTE AUTO 1.09 K/mm3 (0.84-5.20); LYMPHOCYTES PERCENT AUTO 10 % (21-46); MONOCYTES ABSOLUTE AUTO 1.13 K/mm3 (0.16-1.47); MONOCYTES PERCENT AUTO 11 % (4-13); Mean Corpuscular HGB 30.1 pg (26.0-34.0); Mean Corpuscular HGB Conc 32.7 g/dL (31.5-36.5); Mean Corpuscular Volume 92 fL (80-100); Mean Platelet Volume 12.2 fL (9.1-12.4); NEUTROPHILS ABSOLUTE AUTO 8.08 K/mm3 (1.96-9.15); NEUTROPHILS PERCENT AUTO 77 % (41-73); Platelet Count 140 K/mm3 (150-400); RDW Coefficient Variation 15.5 % (11.7-14.2); RDW Standard Deviation 51.6 fL (35.1-46.3); Red Blood Cell Count 3.69 M/mm3 (3.80-5.20); White Blood Cell Count 10.46 K/mm3 (4.00-11.30)
[2019-05-07 05:31] LABS: Anion Gap 8 mmol/L (6-16); Blood Urea Nitrogen 27 mg/dL (8-24); Bun/Creatinine Ratio 37.2 (12.0-20.0); CO2, Blood 23 mmol/L (21-32); Calcium, Blood 8.3 mg/dL (8.5-10.1); Chloride, Blood 119 mmol/L (98-108); Creatinine, Blood 0.73 mg/dL (0.40-1.00); Glomerular Filtration Rate >60 (60-); Glucose, Blood 95 mg/dL (70-99); Potassium, Blood 3.3 mmol/L (3.5-5.5); Sodium, Blood 150 mmol/L (136-145)
--- NOTE | 2019-05-07 17:18 | NUR ---
SHIFT SUMMARY ASSUMED CARE AT 1700. REPORT RECEIVED FROM BRUCE GOMES. PATIENT MEDICATED WITH 25MCG FENTANYL X1, HELPFUL. PATIENT IS UNABLE TO VERBALIZE PAIN OR NEEDS. SHE IS INCONTINENT OF BOWEL AND BLADDER. RESPONDS WELL TO VERBAL COMMUNICATION AND DOES FOLLOW SIMPLE COMMANDS. WOUND VAC IS INTACT. IV IN RIGHT HAND INFUSING PER ORDERS. PATIENT IS NPO. BED LOW AND LOCKED, CALL LIGHT WITHIN REACH, BED ALARM SET. WILL CONT TO MONITOR.
--- NOTE | 2019-05-07 18:34 | NUR ---
REview of patient with staff. pt attemtpts conversation but unable pupils large minimal blinking, attemtpts at focus and response to interaction. will speak with family on pt porgressiona nd form a plan of care.
--- NOTE | 2019-05-07 18:38 | NUR ---
Alysha was alone in room. She did not respond to me either physically or verbally. She was awake, looking at unseen things, and reaching out towards something above her. She appeared restless. Per chart, she is [employer], so I prayed for her at bedside. [employer] services will be available to pt and family.
--- NOTE | 2019-05-07 18:41 | NUR ---
met with patient unable to interact attemtps to verbalize. Pt is non abmulatory. If treatment for infection does not improve her functional ability and she does not regain ability to swallow she reccomend hospice for supportive care and reduction of suffering. FAST score is 7d. Will review with family and staff at [facility].
--- NOTE | 2019-05-07 21:29 | NUR ---
Patient repostioned and cleaned of incontinence. Patient restless in bed.
[2019-05-08 05:06] LABS: BASOPHILS ABSOLUTE AUTO 0.04 K/mm3 (0.00-0.23); BASOPHILS PERCENT AUTO 0 % (0-2); EOSINOPHILS ABSOLUTE AUTO 0.07 K/mm3 (0.00-0.68); EOSINOPHILS PERCENT AUTO 1 % (0-6); Hematocrit 33.3 % (33.0-51.0); Hemoglobin 10.6 g/dL (11.5-16.0); IMMATURE GRAN ABSOLUTE AUTO 0.09 K/mm3 (0.00-0.10); IMMATURE GRAN PERCENT AUTO 1 % (0-1); LYMPHOCYTES ABSOLUTE AUTO 1.24 K/mm3 (0.84-5.20); LYMPHOCYTES PERCENT AUTO 13 % (21-46); MONOCYTES ABSOLUTE AUTO 1.39 K/mm3 (0.16-1.47); MONOCYTES PERCENT AUTO 15 % (4-13); Mean Corpuscular HGB 29.2 pg (26.0-34.0); Mean Corpuscular HGB Conc 31.8 g/dL (31.5-36.5); Mean Corpuscular Volume 92 fL (80-100); Mean Platelet Volume 11.9 fL (9.1-12.4); NEUTROPHILS ABSOLUTE AUTO 6.48 K/mm3 (1.96-9.15); NEUTROPHILS PERCENT AUTO 70 % (41-73); Platelet Count 135 K/mm3 (150-400); RDW Coefficient Variation 15.4 % (11.7-14.2); RDW Standard Deviation 51.7 fL (35.1-46.3); Red Blood Cell Count 3.63 M/mm3 (3.80-5.20); White Blood Cell Count 9.31 K/mm3 (4.00-11.30)
--- NOTE | 2019-05-08 05:17 | NUR ---
PATIENT CONFUSED THROUGHOUT THE NIGHT. PATIENT RESTLESS MOST OF THE NIGHT. PATIENT REPOSITIONED FREQUENTLY. NO ATTEMPTING TO HIT STAFF. PATIENT IS FEARFUL WHEN YOU GO TO TOUCH HER PULLING AWAY AND PROTECTING HERSELF. PATIENT GIVEN HYDRALIZINE AND FENTANYL DURING THE NIGHT. PLACED ICE PACK OVER RIGHT HIP WHICH APPEARED TO HELP. PATIENT HAS NOT SLEPT MORE THAN AN HOUR TONIGHT.
[2019-05-08 05:24] LABS: Albumin, Blood 2.3 g/dL (3.4-5.0); Anion Gap 9 mmol/L (6-16); Blood Urea Nitrogen 23 mg/dL (8-24); Bun/Creatinine Ratio 36.5 (12.0-20.0); CO2, Blood 21 mmol/L (21-32); Calcium, Blood 8.3 mg/dL (8.5-10.1); Chloride, Blood 116 mmol/L (98-108); Creatinine, Blood 0.63 mg/dL (0.40-1.00); Glomerular Filtration Rate >60 (60-); Glucose, Blood 122 mg/dL (70-99); Phosphorus, Blood 2.5 mg/dL (2.5-4.9); Potassium, Blood 3.1 mmol/L (3.5-5.5); Sodium, Blood 146 mmol/L (136-145)
--- NOTE | 2019-05-08 10:06 | NUR ---
NOTIFIED DR. BERNARDO PT'S POTASSIUM 3.[address] BERNARDO REPORTS SHE WILL LOOK AT PT'S CHART. NO NEW ORDERS AT THIS TIME.
--- NOTE | 2019-05-08 14:45 | NUR ---
Case conferenced and reviewed EMR, especially PN, RN notes and both ST swallow evals. Second ST eval is in agreement that pt cannot safely swallow or follow directions for ongoing ST services & with no potential anticipated for improvement. Pt's POLST reviewed and clearly states no artificial feeding desired. POA for healthcare listed in chart and POLST as Albaro Rowe, who I believe is pt's grandson. VM left at number listed for Albaro with request for him to return our call. Number listed [phone] did not identify as Albaro so I did not leave any personal patient details, including pt's name. Plan to continue attempting to reach pt's family to discuss goals of care, comfort care, hospice and return to [facility] when appropriate and arrangements in place. Spoke with RN, who will contact palliative care if family calls in or visits. No family has visited today yet.
--- NOTE | 2019-05-08 18:11 | NUR ---
SHIFT SUMMARY- PT MAINLY NONVERBAL THIS SHIFT. GARBLED SPEECH AT TIMES. PT SAYING "OWE" AND GRITING TEETH THIS AFTERNOON. MEDS GIVEN PER EMAR. RESP E/U ON RA. PT'S BLOOD PRESSURE 192/87 THIS AM. MEDS GIVEN PER EMAR. BP 146/61 THIS PM. CAREGIVER FROM [facility] IN TODAY. DR. GUILLEN IN TO SEE PT TODAY. SPEECH THERAPIST REPORTS NO CHANGES AND SHE WILL BE DISCHARGING PT FROM SPEECH. TURNS Q2H. NO OTHER SIGNIFICANT CHANGES THIS SHIFT.
[2019-05-09 04:46] LABS: BASOPHILS ABSOLUTE AUTO 0.04 K/mm3 (0.00-0.23); BASOPHILS PERCENT AUTO 1 % (0-2); EOSINOPHILS ABSOLUTE AUTO 0.16 K/mm3 (0.00-0.68); EOSINOPHILS PERCENT AUTO 2 % (0-6); Hematocrit 32.6 % (33.0-51.0); Hemoglobin 10.9 g/dL (11.5-16.0); IMMATURE GRAN ABSOLUTE AUTO 0.07 K/mm3 (0.00-0.10); IMMATURE GRAN PERCENT AUTO 1 % (0-1); LYMPHOCYTES ABSOLUTE AUTO 1.67 K/mm3 (0.84-5.20); LYMPHOCYTES PERCENT AUTO 25 % (21-46); MONOCYTES ABSOLUTE AUTO 0.96 K/mm3 (0.16-1.47); MONOCYTES PERCENT AUTO 14 % (4-13); Mean Corpuscular HGB 30.3 pg (26.0-34.0); Mean Corpuscular HGB Conc 33.4 g/dL (31.5-36.5); Mean Corpuscular Volume 91 fL (80-100); Mean Platelet Volume 11.6 fL (9.1-12.4); NEUTROPHILS ABSOLUTE AUTO 3.93 K/mm3 (1.96-9.15); NEUTROPHILS PERCENT AUTO 58 % (41-73); Platelet Count 159 K/mm3 (150-400); RDW Coefficient Variation 15.1 % (11.7-14.2); RDW Standard Deviation 50.4 fL (35.1-46.3); White Blood Cell Count 6.83 K/mm3 (4.00-11.30)
[2019-05-09 05:09] LABS: Albumin, Blood 2.4 g/dL (3.4-5.0); Anion Gap 9 mmol/L (6-16); Blood Urea Nitrogen 18 mg/dL (8-24); Bun/Creatinine Ratio 30.7 (12.0-20.0); CO2, Blood 21 mmol/L (21-32); Calcium, Blood 8.2 mg/dL (8.5-10.1); Chloride, Blood 113 mmol/L (98-108); Creatinine, Blood 0.59 mg/dL (0.40-1.00); Glomerular Filtration Rate >60 (60-); Glucose, Blood 112 mg/dL (70-99); Phosphorus, Blood 2.3 mg/dL (2.5-4.9); Sodium, Blood 143 mmol/L (136-145)
--- NOTE | 2019-05-09 06:17 | NUR ---
follows with her eyes, single words once and a while, brace on arm to help consistant medication, no s/sx of infection or infiltration, call light in reach, will continue to monitor and treat until share bsr with returning day staff, changed wound vac after pt removed
--- NOTE | 2019-05-09 11:01 | NUR ---
NOTIFIED DR. CRESPO PT'S POTASSIUM 3.0. DR. CRESPO REPORTS HE WILL REVIEW HER CHART. NO NEW ORDERS AT THIS TIME.
--- NOTE | 2019-05-09 11:46 | NUR ---
updated physician. called [facility] got a phone number for her sister and called she will [place] family [place] and will go by house if no answer. plan is to offer comfort care.
--- NOTE | 2019-05-09 13:47 | NUR ---
family coming in to discuss plan of care
--- NOTE | 2019-05-09 17:08 | NUR ---
SHIFT SUMMARY- AXO TO NONE. UNABLE TO FOLLOW DIRECTIONS. PT'S BP 185/92 THIS AM. MEDS GIVEN PER EMAR. PT'S FAMILY IN THIS AFTERNOON. PT'S FAMILY BROUGHT IN PT'S PLUSH DOG AND PICTURE BOOK. KILLIAN, PALLIATIVE CARE NURSE IN TO SPEAK WITH FAMILY TODAY. KILLIAN REPORTS PT'S FAMILY DOES NOT WANT TO PURSUE COMFORT CARE AT THIS TIME. PT STARTED ON CLINIMIX TODAY. PT SPEAKING A FEW WORDS THIS PM AND LOOKING AT PICTURES IN HER BOOK. DR. PATIÑO IN TODAY AND REPORTS CELLULITIS IS VISIBLY IMPROVING. TURNS Q2H. WOUND VAC DRESSING CHANGED BY MIREYA FLORES TODAY. NO OTHER SIGNIFICANT CHANGES THIS SHIFT.
--- NOTE | 2019-05-09 17:14 | NUR ---
Called family and they came for visit. Met with and daughter. They brought patient a fidget pillow like the one she uses at her jail. They also brought her a magazine of wild. Pt was interactive and petting her pillow and trying to talk to [facility] about the wild. 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 She also had a dog that was a constant composite bond technician. Pt more alert and making eye contact. Family asked for pain medication and review with staff how she expresses pain. Reviewed with family risks of narcotics advise raul will start with tylenol or non narcotic. The relayed at one pain she was so painful they had her on fentanly patch. They state pain is much less but it still bites at her at times. They state she cant see well or hear well and with stress or change in environment she gets locked in. They did not feel hospice of comfort care was appropriate. They think she will start interacting and may regain swallow. They understand that they are headed [facility] hospice at some point. They feel care is good at [facility] and they trust the facility. However, they want more nursing care for the wound vac as the staff in evenings is lacking in that skill. They would take a brief time at SNF prefer is home health could follow her at [facility].. Put updated phone numbers on white board and will update admissions.
--- NOTE | 2019-05-10 03:40 | NUR ---
SHIFT SUMMARY PT ADMITTED FOR UTI. DNR. NPO-SPEECH NO LONGER WORKING WITH PT DUE TO NOT DIRECTABLE AND PT NOT SAFE TO SWALLOW SO WILL REMAIN NPO AT THIS TIME PER REPORT. ORAL CARE WITH SUCTION SWABS. POWERGLIDE TO L UPPER ARM, CHANGE DRESSING Q WED AND PRN. NON-ORAL MEDICATION ONLY. LOVENOX FOR DVT PROPHYLAXIS. PRN HYDRALAZINE FOR SBP GREATER THEN 160, ADMINISTERED JUST PRIOR TO ARRIVAL ON SHIFT, SBP 165 THEN RECHECK AT 0000 AND 168, ADMINISTERED THIS AM, SEE EMAR. CHARGE NURSE NOTIFIED AND NO NEED TO CONTACT MD REGARDING GREATER THEN 160. CLINIMIX AT 75 MLS/HR, WHICH IS COMPATIBLE WITH 0000 DOSE OF MAXIPIME. R HIP WITH WOUND VAC IN PLACE AND CELLULITIS. THE PT IS A RESIDENT FROM [facility]. PT IS NON-VERBAL AND BEDBOUND AT BASELINE PER REPORT. THE PT PRESENTED TO THE ED FROM [facility] FOR FEVER. THE PT WITH A NOTED HISTORY OF R HIP HEMIARTHROPLASTY IN FEBRUARY 2019 THAT BECAME INFECTED SO I AND D WAS PERFORMED AND WOUND VAC PLACED. THE PTS CAREGIVER STATED THAT THE PTS HEALTH INSURANCE RECENTLY LAPSED AND THEY WERE UNABLE TO USE THE WOUND VAC. THE CAREGIVER WAS USING WET TO DRY DRESSING THAT THE PT FREQUENTLY REMOVED, LIKELY LEADING TO THE INFECTION AND SUBSEQUENT CELLULITIS. THE PT HAS NOT APPARENT TO FALL ASLEEP AT ALL SO FAR THIS SHIFT. THE PT HAS BEEN FIDGETING AND REMAINING OCCURPIED WITH STUFFED DOG THAT FAMILY BROUGHT IN FOR PT. THE PT IS NOTED TO FREQUENT PICK AT ARM, LEGS, AND OTHER AREAS THAT ARE READILY WITHIN REACH. FREQUENT VISUAL CHECKS TO ENSURE SAFETY OF WOUND VAC PLACEMENT AND POWERGLIDE PLACEMENT. THE PT APPEARES TO BE VERY FEARFUL DURING CHANGE AND REPOSITION, IF PT HAS HAD A FALL IN THE PAST. THE PT IS CURRENTLY AWAKE IN BED WITH STUFFED DOG. NO APPARENT SIGNS OF ACUTE DISTRESS. PT IS NOT ABLE TO MAKE NEEDS KNOWN. FREQUENT VISUAL CHECKS, BED ALARM FOR SAFETY, CALL LIGHT IN REACH.
--- NOTE | 2019-05-10 15:22 | NUR ---
pt more alert today nods yes to being hungry. more interactive, will follow up with daughter after speech eval.
--- NOTE | 2019-05-10 17:42 | NUR ---
SHIFT SUMMARY- PT AXO TO NONE. PT SPEAKING A COUPLE WORDS CLEARLY THIS PM. PT MORE ALERT TODAY. PT SAYING "OWE" THIS AFTERNOON AND RESPONDED "YES" WHEN ASKED ABOUT HER PAIN THIS PM. MEDS GIVEN PER EMAR. RESP E/U ON RA. BLOOD PRESSURE THIS AM ELEVATED AT 200/97 DUE TO PT TENSING UP AND MOVING HER ARM WHILE DROP HAMMER MECHANIC TOOK HER BLOOD PRESSURE. BP 154/98 ON PT'S LEG THIS AM. NO OTHER SIGNIFICANT CHANGES THIS SHIFT.
--- NOTE | 2019-05-11 04:10 | NUR ---
SHIFT SUMMARY NO APPARENT ACUTE CHANGES NOTED SO FAR THIS SHIFT. PT HAS BEEN NON-VERBAL PRIOR BUT THIS NIGHT HAS SAID "THANK YOU" AND WHEN THIS NURSE ASKED PT ABOUT PAIN THE PT CLEARLY STATED "NO." THE PT DOES CONTINUE TO STRUGGLE WITH SLEEP. THE PT APPEARED TO SLEEP FOR A VERY SHORT TIME AT THE BEGINNING OF SHIFT BUT HAS BEEN AWAKE THE REST OF THE SHIFT. THE PT CONTINUE TO ENJOY STUFFED DOG. THE PT IS AWAKE AT THIS TIME. NO APPARENT SIGNS OF ACUTE DISTRESS. BED ALARM FOR SAFETY. FREQUENT VISUAL CHECKS. CALL LIGHT IN REACH.
[2019-05-11 11:42] LABS: Vancomycin, Trough 14.9 ug/mL (5.0-10.0)
--- NOTE | 2019-05-11 17:22 | NUR ---
ALERT. TO SELF. NONVERBAL. SMILES WHEN ASKED QUESTIONS. UNLABORED RESPIRATIONS. CLINIMEX INFUSING. WOUND VAC CHANGED. TURNED Q 2. PATIENT MOVES SELF IN BED. WHEN ASKED IF ANY PAIN, SHAKES HEAD. BED IN LOW POSITION. WCTM.
--- NOTE | 2019-05-11 17:51 | NUR ---
PATIENT UNABLE TO SIGN IMM FORM. COPY LEFT AT BEDSIDE.
--- NOTE | 2019-05-12 04:19 | NUR ---
SHIFT SUMMARY. PT HAD NO ISSUES NOTED. WOUND VAC DRAINING WELL. PT IS NONVERBAL. PT HAS SLEPT T/O SHIFT. PT CURRENTLY SLEEPING IN NO DISTRESS. CALL LIGHT IN REACH
[2019-05-12 05:11] LABS: BASOPHILS ABSOLUTE AUTO 0.04 K/mm3 (0.00-0.23); BASOPHILS PERCENT AUTO 0 % (0-2); EOSINOPHILS ABSOLUTE AUTO 0.26 K/mm3 (0.00-0.68); EOSINOPHILS PERCENT AUTO 3 % (0-6); Hematocrit 35.7 % (33.0-51.0); Hemoglobin 11.9 g/dL (11.5-16.0); IMMATURE GRAN ABSOLUTE AUTO 0.08 K/mm3 (0.00-0.10); IMMATURE GRAN PERCENT AUTO 1 % (0-1); LYMPHOCYTES ABSOLUTE AUTO 2.26 K/mm3 (0.84-5.20); LYMPHOCYTES PERCENT AUTO 24 % (21-46); MONOCYTES ABSOLUTE AUTO 1.32 K/mm3 (0.16-1.47); MONOCYTES PERCENT AUTO 14 % (4-13); Mean Corpuscular HGB 29.9 pg (26.0-34.0); Mean Corpuscular HGB Conc 33.3 g/dL (31.5-36.5); Mean Corpuscular Volume 90 fL (80-100); NEUTROPHILS ABSOLUTE AUTO 5.36 K/mm3 (1.96-9.15); NEUTROPHILS PERCENT AUTO 58 % (41-73); Platelet Count 235 K/mm3 (150-400); RDW Coefficient Variation 15.2 % (11.7-14.2); RDW Standard Deviation 49.6 fL (35.1-46.3); Red Blood Cell Count 3.98 M/mm3 (3.80-5.20); White Blood Cell Count 9.32 K/mm3 (4.00-11.30)
--- NOTE | 2019-05-12 05:35 | NUR ---
*SKIN* PT NIALL AREA IS RED AND IRRITATED THIS AM. PT WOULD BENEFIT FROM NYSTATIN POWDER. WILL PASS ON TO DAY RN.
[2019-05-12 05:37] LABS: Anion Gap 7 mmol/L (6-16); Blood Urea Nitrogen 21 mg/dL (8-24); Bun/Creatinine Ratio 35.2 (12.0-20.0); CO2, Blood 23 mmol/L (21-32); Calcium, Blood 8.6 mg/dL (8.5-10.1); Chloride, Blood 110 mmol/L (98-108); Glomerular Filtration Rate >60 (60-); Glucose, Blood 109 mg/dL (70-99); Potassium, Blood 3.1 mmol/L (3.5-5.5); Sodium, Blood 140 mmol/L (136-145)
--- NOTE | 2019-05-12 09:30 | NUR ---
TQALKED TO ABOUT PATIENT LEFT EYELIDS BEING RED AND SWOLLEN. ALSO PATIENT NEEDS NYSTATIN POWDER FOR YEAST INFECTION. OK TO ORDER NYSTATIN PODWER QID
--- NOTE | 2019-05-12 10:48 | NUR ---
PATIENT FENTANYL PATCH W/TEGEDERM WAS FOUND IN THE BED. UNABLE TO WASTE IN PYXIS. WASTED IN NARCOTIC WASTE BUCKET W/AUSTIN NEWTON RN WITNESS.
--- NOTE | 2019-05-12 17:20 | NUR ---
ALERT TO SELF. VARIOUS FAMILY MEMBERS VISITED TODAY AND UNSURE IF SHE SHOWED ANY SIGNS OF KNOWING THEM. WOUND VAC INTACT. ATTENDS CHANGED PRN. TURNED Q 2, BUT PATIENT DOES MOVE ON HER OWN IN BED. BASELINE IS BED BOUND. UNLABORED RESPIRATIONS. POWERGLIDE PATENT W/CLINIMEX INFUSING. NOT COOPERATIVE FOR ORAL CARE. BED IN LOW POSITION. WCTM.
--- NOTE | 2019-05-13 05:02 | NUR ---
SHIFT SUMMARY PATIENT NONVERBAL. Q2H TURN. PATIENT CONTINUES TO PICK AT MEDICAL LINES. PATIENT DISCONNECTED WOUNDVAC, NURSING STAFF REINFORCED DRESSING ON WOUNDVAC AND FIXED AIR LEAK. PATIENT INCONTINENT, STRICT NPO, COMPLETE BEDREST. LEFT IV PATENT WITH NO S/S OF INFECTION.
[2019-05-13] MEDS ORDERED: Feverall650 MG PR (09:51)
[2019-05-13] MEDS ORDERED: Fentanyl1 EACH TOP (10:05)
[2019-05-13] MEDS ORDERED: Catapres-Tts 21 EACH TOP (10:07)
--- NOTE | 2019-05-13 10:10 | NUR ---
REPORT TO BRUCE AT [facility]. ANSWER ALL QUESTIONS
--- NOTE | 2019-05-13 11:12 | NUR ---
IN W/C USING GREEN SLING. CHATA TO RETURN SLING. WOUND VAC DISCONNECTED WITH END IN PLASTIC BAG. CHATA WOUND VAC IN PATIENT BELONGINGS BAG
== END 2019-05-13 10:55 | disposition home or self-care (01) | DRG 559 ==
LOC: ER 09:51 → MEDS 11:59 → ERHOLD 11:59 → MEDS 13:45
PROVIDERS: Emergency Medicine; Internal Medicine; Pharmacist; ADMIT Family Medicine
DX: T84.51XA Infection and inflammatory reaction due to internal right hip prosthesis, initial encounter (principal); G92 Toxic encephalopathy; L03.115 Cellulitis of right lower limb; F05 Delirium due to known physiological condition; N39.0 Urinary tract infection, site not specified; E87.1 Hypo-osmolality and hyponatremia; F02.81 Dementia in other diseases classified elsewhere, unspecified severity, with behavioral disturbance; Z51.5 Encounter for palliative care; G30.9 Alzheimer's disease, unspecified; E87.6 Hypokalemia; I10 Essential (primary) hypertension; E03.9 Hypothyroidism, unspecified; L89.152 Pressure ulcer of sacral region, stage 2; Z66 Do not resuscitate; D69.6 Thrombocytopenia, unspecified; R13.10 Dysphagia, unspecified
CPT/HCPCS: 36415; 71045; 73701; 80048; 80053; 80069; 80164; 80202; 81001; 83605; 84145; 85025; 87040; 87077; 87086; 87186; 92526; 92610; 93005; 93010; 96361; 96365-59; 96375-59; 99285-25; C9113; J0360; J0692; J1650; J3010; J3370; J3480; J7030; J7050; J7070; J7120; Q9967

== ENCOUNTER 2019-08-28 09:27 | Observation (INO) | payer MEDICARE, OTHER ==
[~2019-08-28] VITALS: Ht 165.1 cm; Wt 72.6 kg
[~2019-08-28 09:27] MED LIST changes: +Anti-Diarrheal2 MG PO; +BISA10S PR; +Catapres-Tts 21 EACH TOP; +Fentanyl1 EACH TOP; +Feverall650 MG PR; +Magnesium-Alum360 ML PO; +Milk Of Ma400 MG/5 M PO; +ONDA4ODT MM; +TRIPLE ANTIBIO1 EAC1 TOP
[2019-08-28] MEDS ORDERED: ACET325 PO ×2 (12:06→12:12)
[2019-08-28] MEDS ORDERED: Haloperidol2 MG/1 ML PO (12:09)
[2019-08-28] MEDS ORDERED: TEMA15 PO (12:10)
[2019-08-28] MEDS ORDERED: DOCU100 PO (12:13)
[2019-08-28] MEDS ORDERED: OSCIMIN SL0.125 MG SL (12:14)
[2019-08-28] MEDS ORDERED: Ibuprofen Ib200 MG PO (12:15)
[2019-08-28] MEDS ORDERED: LACT10SY PO (12:16)
[2019-08-28] MEDS ORDERED: LORA.5 PO (12:17)
[2019-08-28] MEDS ORDERED: MORP20L SL (12:18)
[2019-08-28] MEDS ORDERED: COMPAZINE10 MG PO (12:20)
[2019-08-28] MEDS ORDERED: MAGIC BUTT PASTE TOP (12:22)
[2019-08-28 12:44] LABS: BASOPHILS ABSOLUTE AUTO 0.03 K/mm3 (0.00-0.23); BASOPHILS PERCENT AUTO 0 % (0-2); EOSINOPHILS ABSOLUTE AUTO 0.01 K/mm3 (0.00-0.68); EOSINOPHILS PERCENT AUTO 0 % (0-6); Hemoglobin 11.9 g/dL (11.5-16.0); IMMATURE GRAN ABSOLUTE AUTO 0.05 K/mm3 (0.00-0.10); IMMATURE GRAN PERCENT AUTO 0 % (0-1); LYMPHOCYTES ABSOLUTE AUTO 0.95 K/mm3 (0.84-5.20); LYMPHOCYTES PERCENT AUTO 7 % (21-46); MONOCYTES ABSOLUTE AUTO 0.59 K/mm3 (0.16-1.47); MONOCYTES PERCENT AUTO 4 % (4-13); Mean Corpuscular HGB 29.8 pg (26.0-34.0); Mean Corpuscular HGB Conc 32.2 g/dL (31.5-36.5); Mean Corpuscular Volume 93 fL (80-100); NEUTROPHILS PERCENT AUTO 88 % (41-73); RDW Coefficient Variation 15.1 % (11.7-14.2); RDW Standard Deviation 51.5 fL (35.1-46.3); Red Blood Cell Count 3.99 M/mm3 (3.80-5.20); White Blood Cell Count 13.73 K/mm3 (4.00-11.30)
[2019-08-28 12:45] LABS: Mean Platelet Volume 10.3 fL (9.1-12.4); Platelet Count 246 K/mm3 (150-400)
[2019-08-28 13:04] LABS: Alanine Aminotransfer (ALT/SGP 16 U/L (12-78); Albumin, Blood 3.5 g/dL (3.4-5.0); Alk Phos 43 U/L (50-136); Anion Gap 5 mmol/L (6-16); Aspartate Aminotrans (AST/SGOT 20 U/L (12-37); Bilirubin, Total 0.6 mg/dL (0.1-1.0); Blood Urea Nitrogen 23 mg/dL (8-24); Bun/Creatinine Ratio 27.7 (12.0-20.0); CO2, Blood 26 mmol/L (21-32); Chloride, Blood 109 mmol/L (98-108); Creatinine, Blood 0.83 mg/dL (0.40-1.00); Globulin, Blood 3.4 g/dL (2.2-4.0); Glomerular Filtration Rate >60 (60-); Glucose, Blood 112 mg/dL (70-99); Potassium, Blood 4.7 mmol/L (3.5-5.5); Sodium, Blood 140 mmol/L (136-145); Total Protein, Blood 6.9 g/dL (6.4-8.2)
--- NOTE | 2019-08-28 14:02 | NUR ---
UNABLE TO OBTAIN HX AND MEDICAL INFORMATION FROM PT PT IS UNABLE TO PROVIDE INFORMATION. PT IS VERY CONFUSED. PT CAN STATE FIRST NAME BUT NOT LAST NAME, LOCATION, OR REASON FOR ADMIT TO HOSPITAL.
--- NOTE | 2019-08-28 14:03 | NUR ---
AT 1400 PT PULLED OUT IV AND SET OFF BED ALARM TRYING TO CRAWL OUT OF BED. PT REPOSITIONED IN BED, LINENS CHANGED.
--- NOTE | 2019-08-28 17:52 | NUR ---
SHIFT SUMMARY PT ARRIVED TO SURGICAL FLOOR FROM ED TODAY. PT IS VERY CONFUSED WITH HX DEMENTIA. DOES NOT REMEMBER LAST NAME OR BIRTHDAY UNLESS PROMPTED. PT REPORTS PAIN WITH MOVEMENT. BED ALARM HAS BEEN ON AND PT HAS TRIED TO CRAWL OUT OF BED SEVERAL TIMES. PT HAS BEEN CHANGED MULT TIMES D/T INCONTINENCE. PT PULLED OUT IV THIS SHIFT. DR GIL. PLAN IS TO HAVE CONSULT WITH [facility] TO DECIDE IF PT IS CANDIDATE FOR SURGERY.
--- NOTE | 2019-08-29 01:14 | NUR ---
SPOKE WITH DAUGHTER, JASWANT, WHO LIVES IN [place]. DISCUSSED PT MENTATION AND ABILITY TO PROVIDE SURG CONSENT, PT/FAMILY WISHES, AND PURSUING SURGERY. JASWANT STATES SHE WOULD LIKE TO DISCUSS OPTIONS WITH DR AHUJA IN REGARDS TO SURGERY, BUT IS UNDECIDED IF THEY WOULD LIKE TO PURSUE SURGERY OR NOT. JASWANT VERY INVOLVED WITH CARE AND REPORTS HOSPITAL/STAFF MAY REACH HER ANY TIME AT [phone].
[2019-08-29 03:49] LABS: BASOPHILS ABSOLUTE AUTO 0.02 K/mm3 (0.00-0.23); BASOPHILS PERCENT AUTO 0 % (0-2); EOSINOPHILS ABSOLUTE AUTO 0.06 K/mm3 (0.00-0.68); EOSINOPHILS PERCENT AUTO 1 % (0-6); Hematocrit 31.9 % (33.0-51.0); Hemoglobin 10.4 g/dL (11.5-16.0); IMMATURE GRAN ABSOLUTE AUTO 0.04 K/mm3 (0.00-0.10); IMMATURE GRAN PERCENT AUTO 1 % (0-1); LYMPHOCYTES ABSOLUTE AUTO 1.33 K/mm3 (0.84-5.20); LYMPHOCYTES PERCENT AUTO 17 % (21-46); MONOCYTES ABSOLUTE AUTO 0.89 K/mm3 (0.16-1.47); MONOCYTES PERCENT AUTO 12 % (4-13); Mean Corpuscular HGB 29.7 pg (26.0-34.0); Mean Corpuscular HGB Conc 32.6 g/dL (31.5-36.5); Mean Corpuscular Volume 91 fL (80-100); Mean Platelet Volume 9.8 fL (9.1-12.4); NEUTROPHILS ABSOLUTE AUTO 5.35 K/mm3 (1.96-9.15); NEUTROPHILS PERCENT AUTO 70 % (41-73); Platelet Count 222 K/mm3 (150-400); RDW Coefficient Variation 15.1 % (11.7-14.2); RDW Standard Deviation 50.7 fL (35.1-46.3); White Blood Cell Count 7.69 K/mm3 (4.00-11.30)
[2019-08-29 04:09] LABS: Alanine Aminotransfer (ALT/SGP 14 U/L (12-78); Alk Phos 38 U/L (50-136); Anion Gap 7 mmol/L (6-16); Aspartate Aminotrans (AST/SGOT 14 U/L (12-37); Bilirubin, Total 1.2 mg/dL (0.1-1.0); Blood Urea Nitrogen 20 mg/dL (8-24); Bun/Creatinine Ratio 24.1 (12.0-20.0); CO2, Blood 25 mmol/L (21-32); Calcium, Blood 8.9 mg/dL (8.5-10.1); Chloride, Blood 109 mmol/L (98-108); Creatinine, Blood 0.83 mg/dL (0.40-1.00); Globulin, Blood 3.1 g/dL (2.2-4.0); Glomerular Filtration Rate >60 (60-); Glucose, Blood 105 mg/dL (70-99); Magnesium, Blood 1.9 mg/dL (1.6-2.4); Potassium, Blood 3.9 mmol/L (3.5-5.5); Sodium, Blood 141 mmol/L (136-145); Total Protein, Blood 6.1 g/dL (6.4-8.2)
--- NOTE | 2019-08-29 05:24 | NUR ---
SHIFT SUMMARY PT IS VERY CONFUSED AND HAS PULLED OUT IVs, CLOTHING, ID BAND, AND SEVERQAL DRESSINGS TO R HIP. PT PLACED IN BILAT SOFT WRIST RESTRAINTS TO PROTECT LINES AND DRESSING. PT HAS TOLERATED WELL, NONCOMBATIVE TO STAFF. NEW IV PLACED., NEW DRESSING CHANGE TO R HIP INCISION SITE. PT REFUSES PAIN BUT ACCORDING TO DAUGHTER JASWANT, IS NOT RELIABLE PT IS NOT REALLY ABLE TO ANSWER Q'S OR UNDERSTAND DIRECTIONS. MUMBLES WORDS SOFTLY, DIFFICULT TO UNDERSTAND. DAUGHTER, JASWANT, CALLED EARLIER IN SHIFT, SEE PRIOR NOTE. WILL CONT TO MONITOR AND PROVIDE CARE UNTIL PRESUMED BY ONCOMING RN. TREATED WITH 5MG ROXANOL TWICE TONIGHT FOR PAIN, PROVIDES RELIEF AEB LACK OF GRIMACING.NO OTHER CHANGES TO REPORT. WILL CONT TO MONITOR AND PROVIDE CARE UNTIL PRESUMED BY ONCOMING RN.
--- NOTE | 2019-08-29 15:41 | NUR ---
COMFORT CARE DISCUSSED COMFORT CARE WITH PT'S DAUGHTER JASWANT. SHE REPORTED SHE WOULD LIKE THE PT TO BE ON COMFORT CARE WHILE IN THE HOSPITAL UNTIL SHE CAN BE DISCHARGED BACK TO [facility] ON HOSPICE. WILL CONTINUE TO MONITOR.
--- NOTE | 2019-08-29 17:38 | NUR ---
SHIFT SUMMARY PT IS NON-SURGICAL AT THIS TIME; PLAN IS FOR PT TO RETURN TO [facility] ON SATURDAY WITH HOSPICE. PAIN HAS BEEN MANAGED WITH ROXANOL PER HER ROUTINE AT HOME. RN FROM [facility] AND FROM [facility] ROUNDED ON THE PATIENT TODAY. PT AGGITATED AT TIMES, WHICH APPEARS TO BE RELATED PAIN. SHE HAS BEEN ABLE TO FEED HERSELF WITH ASSISTANCE OPENING PACKAGES. PT IN BUCKS TRACTION AT THIS TIME, WILL RE-EVALUATE NEED WITH DR. AHUJA TOMORROW. PT'S FAMILY DECIDED TO PLACE HER ON COMFORT CARE UNTIL SHE CAN RETURN TO [facility] ON SATURDAY. PT OUT OF RESTRAINTS AT NOON. SHE NO LONGER REQUIRES AN IV, RESTRAINTS NO LONGER NEEDED. WILL MONITOR UNTIL REPORT TO ONCOMING RN.
--- NOTE | 2019-08-29 18:38 | NUR ---
ATTEMPTED CATHETER ATTEMPTED TO PLACE ELIZABETH CATHETER FOR COMFORT. ATTEMPTED X1 AND WAS UNABLE TO PLACE. PT APPEARED TO BE MORE DISTRESSED WITH ATTEMPTED CATHETER PLACEMENT THAN FOR ATTENDS CHANGE. PT WAS PREMEDICATED FOR ATTENDS CHANGE, AND WAS PAINFUL BUT APPEARED TO TOLERATE WELL. PT PULLS AT LINES AND TUBES, IN AN EFFORT TO KEEP THE PT OUT OF RESTRAINTS AND COMFORTABLE, CATHETER WILL REMAIN OUT AT THIS TIME. WILL CONTINUE TO MONITOR FOR ANY CHANGES OR INCREASED PAIN WITH ATTENDS CHANGES THAT WOULD INDICATE NEED FOR ELIZABETH CATHETER PLACEMENT.
--- NOTE | 2019-08-29 20:01 | NUR ---
Comfort Care: Pt is alert, not oriented. She is trying to get out of bed, but her right leg is in traction. She is attempting to swing her left leg over the bedrail and appearing scared. Reoriented her to situation, instructed that she has hurt her leg and cannot get up right now. She is redirected several times. She reports pain and is able to point to her legs. Reviewed with nursing. Discussed medications. Pt does not have an IV currently, updated order for PO ativan. Discussed strategy for keeping pt comfortable overnight.
--- NOTE | 2019-08-29 20:29 | NUR ---
PT AWAKE IN ROOM. PT STATES SHE IS "HURTING REALLY BAD" PT UNABLE TO LOCALIZE PAIN. PT CONFUSED, UNABLE TO STATE NAME, , PLACE, ETC. ATTEMPTED TO REORIENT PT, PT BECAME TEARFUL, PT HAND HELD AND REASSURRED. PT COVERED UP W/BLANKETS. BUCKS TX ON RLE. PRN ORDERS DISCUSSED W/PALLIATIVE CARE RN. PT MEDICATED PER EMAR, PT TOOK SEVERAL SIPS OF APPLE JUICE. APPEARED MORE CALM AFTER MEDICATED, DRINKS AND REASSURRANCE. BED ALARM ON, WILL CONT TO MONITOR AND TX PER ORDERS.
--- NOTE | 2019-08-30 02:00 | NUR ---
PT SLEEPING SOUNDLY, RESP E/U. PT REPOSITIONED GENTLY, CRYSTAL WELL. BED ALARM ON.
--- NOTE | 2019-08-30 07:17 | NUR ---
PT HAD NO ACUTE CHANGES T/O NIGHT. PT ORIENTED TO SELF ONLY, NEEDING FREQ REOIRENTING AND REASSURRANCE. PT MEDICATED PER EMAR, APPEARED TO SLEEP WELL FOR MAJORITY OF NIGHT. PT REPOSITIONED GENTLY, CRYSTAL WELL. PO LFUIDS OFFERRED W/ROUNDINGS, W/ONLY FEW SMALL SIPS TAKEN. ATTENDS CHANGED X2 W/SMALL VOIDS NOTED. DRESSING INTACT, BUCKS TRACTION IN PLACE. BED ALARM ON FOR SAFETY.
--- NOTE | 2019-08-30 08:00 | NUR ---
PT RESTING WITH EYES CLOSED. SHE APPEARS COMFORTABLE AND IS NOT AGGITATED. WILL CONTINUE TO MONITOR.
--- NOTE | 2019-08-30 09:30 | NUR ---
PT ASSISTED TO SIT UP IN BED FOR BREAKFAST. PAIN MEDICATION PROVIDED. WILL CONTINUE TO MONITOR.
--- NOTE | 2019-08-30 11:55 | NUR ---
DR AHUJA HERE, REPORTS HE WOULD LIKE TO KEEP TRACTION ON PT'S LEG TO MAINTAIN COMFORT.
--- NOTE | 2019-08-30 17:20 | NUR ---
SHIFT SUMMARY PT HAS BEEN BEDREST TODAY AND RESTING QUITELY WITH EYES CLOSED MOST OF THE DAY. REPOSITIONED PRN. HAS REPORTED NO PAIN THIS SHIFT. LEG IS IN TRACTION. DR AHUJA WAS HERE TODAY AND REPORTS TO KEEP LEG IN TRACTION FOR COMFORT. HOSPICE CARE ALSO VISITED TODAY. PLAN IS TO D/C BACK TO [facility], POSSIBLY ON SATURDAY.
--- NOTE | 2019-08-30 19:21 | NUR ---
pt seen twice today no signs of aggitation or discomfort. Review with staff her use of comfort pillow to pick at when aggitated. we made a make shift one for her to use while here. nursing report hospice nurse came for a visit.
--- NOTE | 2019-08-30 20:26 | NUR ---
PT SLEEPING IN BED. RESP E/U. PT DOES AWAKEN BREIFLY TO VERBAL STIMULI. BUCKS TX IN PLACE, ATTENDS DRY. BED ALARM ON.
--- NOTE | 2019-08-31 06:31 | NUR ---
PT HAD NO CHANGES T/O NIGHT. PT CALM AND CONFUSED. PAIN MGD PER EMAR AND GENTLE REPOSITIONING. PO FLUIDS OFFERRED W/ROUNDINGS, PO INTAKE MINIMAL. ATTENDS CHANGED PRN. BUCKS TX IN PLACE. BED ALARM ON. WILL CONT TO MONITOR UNTIL REP GIVEN TO DAY RN.
--- NOTE | 2019-08-31 08:08 | NUR ---
PT SITTING UP IN BED HAVING BREAKFEAST. APPEARS CALM AND COOP. PT DENIES PAIN AT THIS TIME. BUCKS TRACTION IN PLACE. BED ALARM IN PLACE.
--- NOTE | 2019-08-31 10:05 | NUR ---
PT CONT TO BE EATING BREAKFAST, DOES NOT WISH TO BE REPOSITIONED. DENIES PAIN.
--- NOTE | 2019-08-31 10:08 | NUR ---
PT REPORTS ALMOST DONE WITH BREAKFEAST. PT DENIES PAIN.
--- NOTE | 2019-08-31 10:21 | NUR ---
Comfort Care Visit: Pt resting in bed upon arrival. Pt not very verbal this AM. Pt appears comfortable with no S/S of distress at this time. Spoke with bedside RN Suman and discussed case. Suman reports administering haloperidol this AM and is managing Pt's symptoms. Palliative Care will remain available.
--- NOTE | 2019-08-31 11:52 | NUR ---
BRUCE GIVEN REPORT AT [facility]
--- NOTE | 2019-08-31 12:20 | NUR ---
PT WAS GIVEN SADE BEFORE BEING DISCHARGED. ATTENDS WERE ALSO CHANGED RECENTLY WITH ASSIST. PT DID NOT APPEAR TO HAVE ANY SORE ON BOTTOM.
--- NOTE | 2019-08-31 12:20 | NUR ---
PT BEEN MED FOR PAIN. DRESSING WAS CHANGED ORDERED JEMMA WHEN MEDICATED FOR PAIN. PT NOW BEING TRANSFERRED BACK TO [facility], REPORT WAS GIVEN TO MEGAN. RIDER AWARE OF BUCKS TRACTION NOT AVAILABLE AT [facility]. PT WAS MOVED TO [facility] WITH MULT ASSIST.
== END 2019-08-31 12:24 ==
LOC: ER 09:27 → SURS 09:28 → ER 11:02 → SURS 11:02
PROVIDERS: ADMIT Internal Medicine
DX: S72.331A Displaced oblique fracture of shaft of right femur, initial encounter for closed fracture (principal); M97.01XA Periprosthetic fracture around internal prosthetic right hip joint, initial encounter; I10 Essential (primary) hypertension; E03.9 Hypothyroidism, unspecified; G30.9 Alzheimer's disease, unspecified; W06.XXXA Fall from bed, initial encounter; F02.80 Dementia in other diseases classified elsewhere, unspecified severity, without behavioral disturbance, psychotic disturbance, mood disturbance, and anxiety; Z88.8 Allergy status to other drugs, medicaments and biological substances; Z88.0 Allergy status to penicillin; Z66 Do not resuscitate; Z79.899 Other long term (current) drug therapy; M17.11 Unilateral primary osteoarthritis, right knee
CPT/HCPCS: 36415; 71045; 73502; 73552; 80053; 83735; 85025; 99285-25; G0378